=== PATIENT | male | born 1960 | race Hispanic/Latino ===

== ENCOUNTER 2020-07-28 07:08 | Emergency (ER) | payer BC ==
--- OUTSIDE RECORDS SUMMARY | 2020-07-28 07:10 | XMS REPORT | Continuity of Care Document ---
:1960 Author Organization [facility] t Address [address] [place] [address] Care Team Providers Name Role Phone Unavailable Unavailable Unavailable Problems Condition Condition Condition Status Onset Resolution Last Treating Co mments Source Name Details Category Date Date Treatment Clinician Date Primary Primary Problem Active [facility] osteoarthr osteoarthr Melanie kes - [facility] left knee left knee l [facility] Pain, Pain, Problem Active [facility], left knee, left [facility] Primary Primary Problem Active [facility] osteoarthr osteoarthr Melanie kes - [facility] right knee right knee l [facility] Pain, Pain, Problem Active [facility], knee, [facility] right right l [facility] Bilateral Bilateral Problem Active [facility] primary primary [facility] - osteoarthr osteoarthr Me moria [facility] of itis of l knee knee Outpati ent Clinics Narcolepsy 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 Medications Ordered Filled Start Stop Current Ordering Indication Dosage Frequency Signature Comments Components Source Medication Medication Date Date Medication? Clinician (SIG) Name Name Tramadol Tramadol 2019- No Gonzalo as [facility] HCl HCl 06-03 Jesus directed [facility] 00:[facility]: [facility] :[facility] Lisinopril- Lisinopril- Yes Gonzalo not [facility] Hydrochloro Hydrochloro [facility] defined [facility] - thiazide thiazide [facility] Acetaminoph Acetaminoph Yes Gonzalo not [facility] en-Codeine en-Codeine [facility] defined [facility] - #3 #3 [facility] ibuprofen ibuprofen Yes Gonzalo not [facility] Jesus defined [facility] Shingrix Shingrix Yes [facility] not [facility] Twinrix Twinrix Yes Gonzalo not [facility] Jesus defined [facility] Penicillin Penicillin Yes Gonzalo not [facility] V Potassium V Potassium [facility] Procedures This patient has no known procedures. Encounters Start End Encounter Admission Attending Care Care Encounter Source Date/Time Date/Time Type Type Clinicians Facility Department ID 2019-07-08 2019-07-08 Outpatient Claudia Taylort [id number] [facility] 15:30:00 15:30:00 [facility] 2019-06-03 2019-06-03 Outpatient Claudia Taylort [id number] [facility] 09:30:00 09:30:00 t [facility] 2018-09-12 2018-09-12 Outpatient Claudia Taylort [id number] [facility] 08:00:00 08:00:00 t [facility] Results This patient has no known results.
[2020-07-28] MEDS ORDERED: dexAMETHasone 10 MG/ML VIAL ONE (07:42)
[2020-07-28] MEDS ORDERED: MEPERIDINE HCL 50 MG/ML ONE (07:42)
--- NOTE | 2020-07-28 08:19 | ER ---
Nurse's Notes [facility] Name: Star Sullivan Age: 59 yrs Sex: Male : 1960 Arrival Date: 07/28/2020 Time: 07:11 Bed 20 Private MD: Diagnosis: Radiculopathy, lumbosacral region Presentation: 07/28 07:14 Chief complaint: Patient states: right mid-lower back pain radiating down to right hip aa5 began yesterday and got worse this morning. Pt only reports pain with movement and walking. 07:14 Coronavirus screen: Client denies travel out of the [place] in the last 14 days. At this aa5 time, the client does not indicate any symptoms associated with coronavirus-19. 07:14 Acuity: AL 4 aa5 07:14 Method Of Arrival: Ambulatory aa5 07:14 Risk Assessment: Do you want to hurt yourself or someone else? Patient reports no aa5 desire to harm self or others. 07:14 Ebola Screen: Patient negative for fever greater than or equal to 101.5 degrees aa5 Fahrenheit, and additional compatible Ebola Virus Disease symptoms. Initial Sepsis Screen: Does the patient meet any 2 criteria? No. Patient's initial sepsis screen is negative. Does the patient have a suspected source of infection? No. Patient's initial sepsis screen is negative. 07:14 Onset of symptoms was July 28, 2020. aa5 Historical: - Allergies: 07:20 No Known Allergies; aa5 - PMHx: 07:20 Hypertension; aa5 - Immunization history:: Adult Immunizations unknown. - Social history:: Smoking status: Patient denies any tobacco usage or history of. - Family history:: not pertinent. - Hospitalizations: : No recent hospitalization is reported. Screenin:42 Abuse screen: Denies threats or abuse. Denies injuries from another. Nutritional jr10 screening: No deficits noted. Tuberculosis screening: No symptoms or risk factors identified. Fall Risk IV access (20 points). Assessment: 07:43 General: Appears uncomfortable, Behavior is calm, cooperative, appropriate for age. jr10 Pain: Complains of pain in right lower back Pain radiates to right gluteus salazar, right gluteal fold and right hamstring Pain currently is 8 out of 10 on a pain scale. Quality of pain is described as sharp, shooting, Pain began suddenly, this morning Is episodic, Alleviated by nothing. Aggravated by increased activity, weight bearing, Noted to be grimacing. Neuro: No deficits noted. Respiratory: No deficits noted. Derm: No deficits noted. No signs and/or symptoms reported regarding the dermatologic system. Musculoskeletal: Reports pain that started in right side lower back that radiates down right thigh to knee, pt reports pain that started this morning when he woke up, denies any trauma or injury to affected extremity, reports pain that is worse with ambulation and activity. Vital Signs: 07:14 BP 131 / 50; Pulse 74; Resp 18 S; Temp 98.6(O); Pulse Ox 97% on R/A; Weight 97.52 kg aa5 (R); Height 5 ft. 5 in. (165.10 cm) (R); Pain 10/10; 08:09 BP 130 / 59; Pulse 64; Resp 20; Pulse Ox 95% on R/A; jr10 07:14 Body Mass Index 35.78 (97.52 kg, 165.10 cm) aa5 ED Course: 07:11 Patient arrived in ED. as 07:14 Arm band placed on. aa5 07:15 Wong Melo MD is Attending Physician. rn 07:23 Larisa Corea RN is Primary Nurse. jr10 07:31 Triage completed. aa5 07:42 Patient has correct armband on for positive identification. Bed in low position. Call jr10 light in reach. Side rails up X2. Pulse ox on. NIBP on. 07:42 No provider procedures requiring assistance completed. Inserted saline lock: 20 gauge jr10 in right hand, using aseptic technique. IV is patent, is intact, with good blood return, Flushed. 08:41 IV discontinued, intact, bleeding controlled, No redness/swelling at site. Pressure jr10 dressing applied. Administered Medications: 07:43 Drug: Decadron - Dexamethasone 10 mg Route: IVP; Site: right hand; jr10 08:42 Follow up: Response: No adverse reaction jr10 07:45 Drug: Demerol 25 mg Route: IVP; Site: right hand; jr10 08:42 Follow up: Response: No adverse reaction jr10 Outcome: 08:18 Discharge ordered by . rn 08:41 Discharged to home via wheelchair. jr10 08:41 Condition: improved 08:41 Discharge instructions given to patient, Instructed on discharge instructions, follow up and referral plans. Demonstrated understanding of instructions, follow-up care, medications, Prescriptions given X 3. 08:42 Patient left the ED. jr10 Signatures: Marian White Roman, MD MD rn Calderon, Audri RN RN aa5 Larisa Corea RN RN jr10
--- NOTE | 2020-07-28 08:19 | EDPHYS ---
Physician Documentation [facility] Name: Star Sullivan Age: 59 yrs Sex: Male : 1960 Arrival Date: 07/28/2020 Time: 07:11 Bed 20 Private MD: ED Physician Wong Melo HPI: 07/28 07:26 This 59 yrs old Male presents to ER via Unassigned with complaints of Hip rn Pain, leg pain. 07:27 The patient or guardian reports pain. that occurred at home, sustained from unknown rn reason, There is no obvious deformity, The patient is able to self ambulate. The patient is able to bear their full body weight. Onset: The symptoms/episode began/occurred this morning. Modifying factors: The symptoms are alleviated by remaining still, the symptoms are aggravated by any movement. Severity of symptoms: At their worst the symptoms were moderate, in the emergency department the symptoms are unchanged. The patient has not experienced similar symptoms in the past. Reports went to bed fine, woke up this morning with right lower back pain radiating to right leg/thigh, worse with movement, no injury or heavy lifting. No trauma. No fever/abd pain/urinary symptoms/syncope/weakness. Hurts to walk, no pain when laying down or sitting. . Historical: - Allergies: 07:20 No Known Allergies; aa5 - PMHx: 07:20 Hypertension; aa5 - Immunization history:: Adult Immunizations unknown. - Social history:: Smoking status: Patient denies any tobacco usage or history of. - Family history:: not pertinent. - Hospitalizations: : No recent hospitalization is reported. ROS: 07:27 Constitutional: Negative for fever, chills, and weight loss, Neck: Negative for injury, rn pain, and swelling, Cardiovascular: Negative for chest pain, palpitations, and edema, Respiratory: Negative for shortness of breath, cough, wheezing, and pleuritic chest pain, Abdomen/GI: Negative for abdominal pain, nausea, vomiting, diarrhea, and constipation, Back: Negative for injury MS/Extremity: + right leg pain Skin: Negative for injury, rash, and discoloration, Neuro: Negative for headache, weakness, numbness, tingling, and seizure. Exam: 07:27 Constitutional: This is a well developed, well nourished patient who is awake, alert, rn and in no acute distress. Cardiovascular: Regular rate and rhythm. No pulse deficits. Respiratory: No increased work of breathing, no retractions or nasal flaring. Abdomen/GI: soft, non-tender, no pulsatile mass Back: No spinal tenderness. Skin: Warm, dry with normal turgor. Normal color with no rashes, no lesions, and no evidence of cellulitis. MS/ Extremity: Pulses equal, no cyanosis. Neurovascular intact. Equal circumference. + straight leg raise RLE. Neuro: Awake and alert, GCS 15, oriented to person, place, time, and situation. Cranial nerves II-XII grossly intact. Motor strength 5/5 in all extremities. Sensory grossly intact. Cerebellar exam normal. Antalgic gait on right leg. Vital Signs: 07:14 BP 131 / 50; Pulse 74; Resp 18 S; Temp 98.6(O); Pulse Ox 97% on R/A; Weight 97.52 kg aa5 (R); Height 5 ft. 5 in. (165.10 cm) (R); Pain 10/10; 08:09 BP 130 / 59; Pulse 64; Resp 20; Pulse Ox 95% on R/A; jr10 07:14 Body Mass Index 35.78 (97.52 kg, 165.10 cm) aa5 MDM: 07:15 Patient medically screened. rn 08:17 Differential diagnosis: bursitis, arthritis, strain, radiculopathy. Data reviewed: rn vital signs, nurses notes, and as a result, I will discharge patient. Counseling: I had a detailed discussion with the patient and/or guardian regarding: the historical points, exam findings, and any diagnostic results supporting the discharge/admit diagnosis, the need for outpatient follow up, to return to the emergency department if symptoms worsen or persist or if there are any questions or concerns that arise at home. Response to treatment: the patient's symptoms have mildly improved after treatment, and as a result, I will discharge patient. ED course: Improved ambulation, most likely lumbar radiculopathy, stable vitals, no trauma, normal reflexes, will dc home with muscle relaxer, pain meds, steroids with pcp f/u. Return precautions given and understood. . 07/28 07:26 Order name: IV Start; Complete Time: 07:46 rn Administered Medications: 07:43 Drug: Decadron - Dexamethasone 10 mg Route: IVP; Site: right hand; jr10 08:42 Follow up: Response: No adverse reaction jr10 07:45 Drug: Demerol 25 mg Route: IVP; Site: right hand; jr10 08:42 Follow up: Response: No adverse reaction jr10 Disposition: 07/28/20 08:18 Discharged to Home. Impression: Radiculopathy, lumbosacral region. - Condition is Stable. - Discharge Instructions: Lumbosacral Radiculopathy. - Prescriptions for Ultram 50 mg Oral Tablet - take 1 tablet by ORAL route every 6 hours As needed; 15 tablet. Cyclobenzaprine 10 mg Oral Tablet - take 1 tablet by ORAL route every 8 hours As needed; 15 tablet. Medrol (Akash) 4 mg Oral Tablets, Dose Pack - take 1 tablet by ORAL route as directed - follow package instructions; 1 packet. - Medication Reconciliation Form, Thank You Letter, Antibiotic Education, Prescription Opioid Use, Work release form form. - Follow up: Private Physician; When: As needed; Reason: Recheck today's complaints, Re-evaluation by your physician. - Problem is new. - Symptoms have improved. Signatures: Wong Melo MD MD rn Gayatri Oconnor, RN RN aa5 Larisa Corea RN RN jr10 Corrections: (The following items were deleted from the chart) 08:42 08:18 07/28/2020 08:18 Discharged to Home. Impression: Radiculopathy, lumbosacral jr10 region. Condition is Stable. Forms are Medication Reconciliation Form, Thank You Letter, Antibiotic Education, Prescription Opioid Use. Follow up: Private Physician; When: As needed; Reason: Recheck today's complaints, Re-evaluation by your physician. Problem is new. Symptoms have improved. rn
[2020-07-30 17:36] VITALS: TEMP 98.6
[2020-07-30 17:37] VITALS: BP 130/59; O2SAT 95
== END 2020-07-28 08:42 | disposition home or self-care (01) ==
LOC: ER 07:08
DX: M54.17 Radiculopathy, lumbosacral region (principal)
CPT/HCPCS: J1100; J2175; 96374; 96375; 99284

== ENCOUNTER 2020-08-03 12:38 | Emergency (ER) | payer BC ==
--- OUTSIDE RECORDS SUMMARY | 2020-08-03 12:40 | XMS REPORT | Continuity of Care Document ---
:1960 Author Organization [facility] t Address [address] [place] [address] Care Team Providers Name Role Phone Unavailable [...] Potassium Jesus defined [facility] Procedures This patient has no known procedures. Encounters Start End Encounter Admission Attending Care Care Encounter Source Date/Time Date/Time Type Type Clinicians Facility Department ID 2019-07-08 2019-07-08 Outpatient Claudia Taylort [id number] [facility] 15:30:00 15:30:00 t [facility] 2019-06-03 2019-06-03 Outpatient Claudia Taylort [id number] [facility] 09:30:00 09:30:00 t [facility] 2018-09-12 2018-09-12 Outpatient Claudia Taylort [id number] [facility] 08:00:00 08:00:00 t [facility] Results This patient has no known results.
[2020-08-03 14:11] LABS: Absolute Lymphocytes (CBC) 2.5 K/uL (0.7-4.9); Basophils % 0.9 % (0-1.3); Hematocrit 38.7 % (39.6-49.0); MPV 9.3 fL (7.6-11.3)
[2020-08-03 14:12] LABS: Protime INR 0.97
[2020-08-03] MEDS ORDERED: NA CHLORIDE 0.9% 500 ML ONE ×2 (14:17→16:05)
--- NOTE | 2020-08-03 14:23 | RAD REPORT ---
EXAM DESCRIPTION: CT - Angio Aorta For Dissection - 08/03/2020 1:50 pm CLINICAL HISTORY: . Chest and abdominal pain COMPARISON: None TECHNIQUE: Computed tomography angiography of the chest, abdomen pelvis were obtained. 100 cc Isovue 370 was administered intravenously. Coronal and sagittal reconstruction were performed. MIP 3D reconstruction was performed All CT scans are performed using dose optimization technique as appropriate and may include automated exposure control or mA/KV adjustment according to patient size. FINDINGS: An aortic dissection is not seen. An aortic aneurysm is not displayed. The celiac, SMA and MARIBETH are patent . A lung consolidation is not present. A pericardial effusion is not seen. A pleural effusion is not n oted. Fatty liver Spleen, pancreas adrenals kidneys demonstrate no significant abnormality. The appendix is normal. There no evidence diverticulitis. Spondylosis involves lumbar spine. Small inguinal hernias contain fat Mild gastric distention IMPRESSION: Negative for an aortic dissection.
[2020-08-03 14:37] LABS: ALT/SGPT 80 U/L (12-78); AST/SGOT 35 U/L (15-37); Albumin 3.6 g/dL (3.4-5.0); Alkaline Phosphatase 104 U/L (45-117); BUN Blood Urea Nitrogen 37 mg/dL (7-18); Bicarbonate 27 mmol/L (21-32); Bilirubin Direct 0.2 mg/dL (0-0.2); Bilirubin Total 0.5 mg/dL (0.2-1.0); Glucose Level 142 mg/dL (74-106); Magnesium 2.3 mg/dL (1.8-2.4); NT PRO-BNP 27 pg/mL (<125); Potassium 3.6 mmol/L (3.5-5.1); Protein, Total 6.9 g/dL (6.4-8.2); Sodium Level 141 mmol/L (136-145); Troponin (Emerg Dept Use Only) < 0.02 ng/mL (0.0-0.045)
[2020-08-03] MEDS ORDERED: dexAMETHasone 10 MG/ML VIAL ONE (15:44)
--- NOTE | 2020-08-03 15:48 | RAD REPORT ---
EXAM DESCRIPTION: Jakub Single View08/03/2020 2:33 pm CLINICAL HISTORY: Hypertension COMPARISON: none FINDINGS: The lungs appear clear of acute infiltrate. The heart is normal size IMPRESSION: No acute abnormalities displayed
--- NOTE | 2020-08-03 16:49 | ER ---
Nurse's Notes [facility] Name: Star Sullivan Age: 59 yrs Sex: Male : 1960 Arrival Date: 08/03/2020 Time: 12:41 Bed 6 Private MD: Mayra Monk H Diagnosis: Sciatica, right side;Hypotension, unspecified;Volume depletion Presentation: 08/03 12:50 Chief complaint: Patient states: Right hip pain continues since last visit here. Pain ll1 radiates down right leg. Medications tramadol and flexeril not helping. Coronavirus screen: Client denies travel out of the [place] in the last 14 days. At this time, the client does not indicate any symptoms associated with coronavirus-19. Ebola Screen: Patient denies travel to an Ebola-affected area in the 21 days before illness onset. Initial Sepsis Screen: Does the patient meet any 2 criteria? Systolic BP < 90 mmHg. Risk Assessment: Do you want to hurt yourself or someone else? Patient reports no desire to harm self or others. Onset of symptoms was July 28, 2020. 12:50 Method Of Arrival: Wheelchair ll1 12:50 Acuity: AL 2 ll1 15:49 Initial Sepsis Screen: Does the patient have a suspected source of infection? No. sv Patient's initial sepsis screen is negative. Historical: - Allergies: 12:49 No Known Allergies; ll1 - PMHx: 12:49 Hypertension; ll1 - PSHx: 12:49 cataract repair; ll1 - Immunization history:: Flu vaccine is not up to date. - Social history:: Smoking status: Patient reports the use of cigarette tobacco products, smokes one-half pack cigarettes per day, Patient uses alcohol, only on a social basis. Patient/guardian denies using street drugs. Screenin:40 Abuse screen: Denies threats or abuse. Denies injuries from another. Nutritional sv screening: No deficits noted. Tuberculosis screening: No symptoms or risk factors identified. Fall Risk None identified. Assessment: 13:35 General: Appears in no apparent distress. uncomfortable, well groomed, well developed, sv Behavior is calm, cooperative, appropriate for age. Pain: Complains of pain in right hip and right leg Pain currently is 10 out of 10 on a pain scale. Is continuous, Aggravated by increased activity, repositioning. Neuro: Level of Consciousness is awake, alert, obeys commands, Oriented to person, place, time, situation, Moves all extremities. Full function. Cardiovascular: Denies chest pain, shortness of breath, Patient's skin is warm and dry. Respiratory: Airway is patent Respiratory effort is even, unlabored, Respiratory pattern is regular, symmetrical. Derm: Skin is intact, Skin is pink, warm \T\ dry. 14:13 Reassessment: Patient appears in no apparent distress at this time. No changes from sv previously documented assessment. Patient and/or family updated on plan of care and expected duration. Pain level reassessed. Patient is alert, oriented x 3, equal unlabored respirations, skin warm/dry/pink. 15:40 Reassessment: Patient appears in no apparent distress at this time. No changes from sv previously documented assessment. Patient and/or family updated on plan of care and expected duration. Pain level reassessed. Patient is alert, oriented x 3, equal unlabored respirations, skin warm/dry/pink. 16:20 Reassessment: Patient appears in no apparent distress at this time. Patient and/or sv family updated on plan of care and expected duration. Pain level reassessed. Patient is alert, oriented x 3, equal unlabored respirations, skin warm/dry/pink. 17:17 Reassessment: Patient appears in no apparent distress at this time. Patient and/or sv family updated on plan of care and expected duration. Pain level reassessed. Patient is alert, oriented x 3, equal unlabored respirations, skin warm/dry/pink. Patient states feeling better. Patient states symptoms have improved. Vital Signs: 12:50 BP 81 / 55; Pulse 88; Resp 18; Temp 97.8; Pulse Ox 97% ; Pain 10/10; ll1 13:15 BP 94 / 46; Pulse 74; Resp 16; Pulse Ox 95% ; sv 14:00 BP 114 / 52; Pulse 74 MON; Resp 16; Pulse Ox 95% on R/A; sv 14:30 BP 102 / 51; Pulse 63; Resp 19; Pulse Ox 95% ; sv 15:00 BP 94 / 53; Pulse 63 MON; Resp 17; Pulse Ox 95% on R/A; sv 15:46 BP 118 / 59; Pulse 74; Resp 21; Pulse Ox 95% ; sv 15:50 BP 110 / 65 LA Supine (auto/reg); Pulse 70; sv 15:52 BP 112 / 64 LA Sitting (auto/reg); Pulse 65; sv 15:57 BP 106 / 68 LA Standing (auto/reg); Pulse 84; sv 16:50 BP 127 / 73; Pulse 68; Resp 16; Pulse Ox 96% ; sv 14:00 Sinus Rhythm sv 15:00 Sinus Rhythm sv ED Course: 12:41 Patient arrived in ED. mr 12:41 aMyra Monk DO is Private Physician. mr 12:55 Triage completed. ll1 12:55 Arm band placed on. ll1 13:22 Jocelyn Gandhi FNP-C is PHCP. snw 13:22 Gianni Rowan MD is Attending Physician. snw 13:27 Carly Santos RN is Primary Nurse. sv 13:35 manager hospitality on. Pulse ox on. NIBP on. sv 13:40 Patient has correct armband on for positive identification. Placed in gown. Bed in low sv position. Call light in reach. Side rails up X2. 13:40 EKG done, by ED staff, reviewed by Jocelyn CALLE. Inserted saline lock: 20 gauge sv in right antecubital area, using aseptic technique. Blood collected. Flushed right antecubital with 5 ml normal saline. 13:50 CT Aorta for Dissection In Process Unspecified. EDMS 14:33 XRAY Chest (1 view) In Process Unspecified. EDMS 14:58 Awaiting radiology results. Awaiting re-evaluation by ER provider. sv 16:48 Mayra Monk DO is Referral Physician. snw 17:17 No provider procedures requiring assistance completed. IV discontinued, intact, sv bleeding controlled, No redness/swelling at site. Pressure dressing applied. Administered Medications: 14:13 Drug: NS 0.9% 500 ml Route: IV; Rate: bolus; Site: right antecubital; sv 16:00 Follow up: Response: No adverse reaction; IV Status: Completed infusion; IV Intake: sv 500ml 15:40 Drug: Decadron - Dexamethasone 10 mg Route: IVP; Site: right antecubital; sv 15:49 Follow up: Response: No adverse reaction sv 15:56 Drug: NS 0.9% 500 ml Volume: 500 ml; Route: IV; Rate: 1 bolus; Site: right antecubital; sv 16:30 Follow up: Response: No adverse reaction; IV Status: Completed infusion; IV Intake: sv 500ml Intake: 16:00 IV: 500ml; Total: 500ml. sv 16:30 IV: 500ml; Total: 1000ml. sv Outcome: 16:49 Discharge ordered by MD. ramirez 17:17 Patient left the ED. sv 17:17 Discharged to home via wheelchair, with family. sv 17:17 Condition: stable 17:17 Discharge instructions given to patient, Instructed on discharge instructions, follow up and referral plans. medication usage, Demonstrated understanding of instructions, follow-up care, medications, Prescriptions given X 1. Signatures: Dispatcher [employer] Carly Santoro, Jocelyn Gifford RN, ASSOCIATE PROFESSOR OF PATHOLOGY-C ASSOCIATE PROFESSOR OF PATHOLOGY-Csnw Ling Corea Lynsay RN RN ll1
--- NOTE | 2020-08-03 16:49 | EDPHYS ---
Physician Documentation [facility] Name: Star Sullivan Age: 59 yrs Sex: Male : 1960 Arrival Date: 08/03/2020 Time: 12:41 Bed 6 Private MD: Mayra Monk H ED Physician Gianni Rowan HPI: 08/03 14:59 This 59 yrs old Male presents to ER via Wheelchair with complaints of Leg Pain.snw 14:59 The patient presents with pain, spasm. The complaints affect the right hip and pelvis. snw Context: The problem was sustained at an unknown site. Onset: The symptoms/episode began/occurred suddenly, 1 week(s) ago, and became persistent. Treatment prior to arrival includes: seen here recently and given anti-inflammatories and flexeril - pt states it has not helped. Severity of symptoms: At their worst the symptoms were moderate, severe. The patient has experienced similar episodes in the past. The patient has not recently seen a physician, Sees Dr. Monk. Historical: - Allergies: 12:49 No Known Allergies; ll1 - PMHx: 12:49 Hypertension; ll1 - PSHx: 12:49 cataract repair; ll1 - Immunization history:: Flu vaccine is not up to date. - Social history:: Smoking status: Patient reports the use of cigarette tobacco products, smokes one-half pack cigarettes per day, Patient uses alcohol, only on a social basis. Patient/guardian denies using street drugs. ROS: 14:58 Constitutional: Negative for fever, chills, and weight loss, Eyes: Negative for injury, snw pain, redness, and discharge, ENT: Negative for injury, pain, and discharge, Neck: Negative for injury, pain, and swelling, Cardiovascular: Negative for chest pain, palpitations, and edema, Respiratory: Negative for shortness of breath, cough, wheezing, and pleuritic chest pain, Abdomen/GI: Negative for abdominal pain, nausea, vomiting, diarrhea, and constipation, : Negative for injury, bleeding, discharge, and swelling, Skin: Negative for injury, rash, and discoloration, Neuro: Negative for headache, weakness, numbness, tingling, and seizure, Psych: Negative for depression, anxiety, suicide ideation, homicidal ideation, and hallucinations. 14:58 Back: Positive for pain at rest, pain with movement, radiated pain. 14:58 MS/extremity: Positive for pain, of the right hip. Exam: 14:58 Constitutional: This is a well developed, well nourished patient who is awake, alert, snw and in no acute distress. Head/Face: Normocephalic, atraumatic. Eyes: Pupils equal round and reactive to light, extra-ocular motions intact. Lids and lashes normal. Conjunctiva and sclera are non-icteric and not injected. Cornea within normal limits. Periorbital areas with no swelling, redness, or edema. ENT: Nares patent. No nasal discharge, no septal abnormalities noted. Tympanic membranes are normal and external auditory canals are clear. Oropharynx with no redness, swelling, or masses, exudates, or evidence of obstruction, uvula midline. Mucous membranes moist. Neck: Trachea midline, no thyromegaly or masses palpated, and no cervical lymphadenopathy. Supple, full range of motion without nuchal rigidity, or vertebral point tenderness. No Meningismus. Chest/axilla: Normal chest wall appearance and motion. Nontender with no deformity. No lesions are appreciated. Cardiovascular: Regular rate and rhythm with a normal S1 and S2. No gallops, murmurs, or rubs. Normal PMI, no JVD. No pulse deficits. Respiratory: Lungs have equal breath sounds bilaterally, clear to auscultation and percussion. No rales, rhonchi or wheezes noted. No increased work of breathing, no retractions or nasal flaring. Abdomen/GI: Soft, non-tender, with normal bowel sounds. No distension or tympany. No guarding or rebound. No evidence of tenderness throughout. Skin: Warm, dry with normal turgor. Normal color with no rashes, no lesions, and no evidence of cellulitis. MS/ Extremity: Pulses equal, no cyanosis. Neurovascular intact. Full, normal range of motion. Neuro: Awake and alert, GCS 15, oriented to person, place, time, and situation. Cranial nerves II-XII grossly intact. Motor strength 5/5 in all extremities. Sensory grossly intact. Cerebellar exam normal. Normal gait. Psych: Awake, alert, with orientation to person, place and time. Behavior, mood, and affect are within normal limits. 14:58 Back: pain, that is moderate, ROM is painful, CVA tenderness, is absent, muscle spasm, is not present. Vital Signs: 12:50 BP 81 / 55; Pulse 88; Resp 18; Temp 97.8; Pulse Ox 97% ; Pain 10/10; ll1 13:15 BP 94 / 46; Pulse 74; Resp 16; Pulse Ox 95% ; sv 14:00 BP 114 / 52; Pulse 74 MON; Resp 16; Pulse Ox 95% on R/A; sv 14:30 BP 102 / 51; Pulse 63; Resp 19; Pulse Ox 95% ; sv 15:00 BP 94 / 53; Pulse 63 MON; Resp 17; Pulse Ox 95% on R/A; sv 15:46 BP 118 / 59; Pulse 74; Resp 21; Pulse Ox 95% ; sv 15:50 BP 110 / 65 LA Supine (auto/reg); Pulse 70; sv 15:52 BP 112 / 64 LA Sitting (auto/reg); Pulse 65; sv 15:57 BP 106 / 68 LA Standing (auto/reg); Pulse 84; sv 16:50 BP 127 / 73; Pulse 68; Resp 16; Pulse Ox 96% ; sv 14:00 Sinus Rhythm sv 15:00 Sinus Rhythm sv MDM: 13:24 Patient medically screened. snw 15:02 Data reviewed: vital signs, nurses notes. Data interpreted: Pulse oximetry: on room air snw is 95 %. Interpretation: acceptable. Response to treatment: the patient's symptoms have mildly improved after treatment. ED course: BP remains low. 08/03 13:21 Order name: Basic Metabolic Panel; Complete Time: 14:42 snw 08/03 13:21 Order name: CBC with Diff; Complete Time: 14:29 snw 08/03 13:21 Order name: LFT's; Complete Time: 14:42 snw 08/03 13:21 Order name: Magnesium; Complete Time: 14:42 snw 08/03 13:21 Order name: NT PRO-BNP; Complete Time: 14:42 snw 08/03 13:21 Order name: PT-INR; Complete Time: 14:29 snw 08/03 13:21 Order name: CT Aorta for Dissection; Complete Time: 14:29 snw 08/03 13:21 Order name: Troponin (emerg Dept Use Only); Complete Time: 14:42 snw 08/03 13:21 Order name: XRAY Chest (1 view); Complete Time: 15:49 snw 08/03 13:21 Order name: EKG; Complete Time: 13:21 snw 08/03 14:04 Order name: CREATININE WHOLE BLOOD; Complete Time: 14:14 EDMS 08/03 13:21 Order name: Cardiac monitoring; Complete Time: 14:14 snw 08/03 13:21 Order name: EKG - Nurse/Tech; Complete Time: 14:14 snw 08/03 13:21 Order name: IV Saline Lock; Complete Time: 14:14 snw 08/03 13:21 Order name: Labs collected and sent; Complete Time: 14:14 snw 08/03 13:21 Order name: O2 Per Protocol; Complete Time: 14:14 snw 08/03 13:21 Order name: O2 Sat Monitoring; Complete Time: 14:14 snw 08/03 13:51 Order name: Recheck B/P; Complete Time: 14:14 snw 08/03 15:27 Order name: Orthostatics; Complete Time: 15:56 snw EC:45 Rate is 71 beats/min. Rhythm is regular. QRS [place] is Normal. CA interval is normal. QRS snw interval is normal. QT interval is normal. Clinical impression: Normal ECG. Administered Medications: 14:13 Drug: NS 0.9% 500 ml Route: IV; Rate: bolus; Site: right antecubital; sv 16:00 Follow up: Response: No adverse reaction; IV Status: Completed infusion; IV Intake: sv 500ml 15:40 Drug: Decadron - Dexamethasone 10 mg Route: IVP; Site: right antecubital; sv 15:49 Follow up: Response: No adverse reaction sv 15:56 Drug: NS 0.9% 500 ml Volume: 500 ml; Route: IV; Rate: 1 bolus; Site: right antecubital; sv 16:30 Follow up: Response: No adverse reaction; IV Status: Completed infusion; IV Intake: sv 500ml Disposition: 08/03/20 16:49 Discharged to Home. Impression: Sciatica, right side, Hypotension, unspecified, Volume depletion. - Condition is Stable. - Discharge Instructions: Dehydration, Adult, Sciatica, Rehydration, Adult, Heat Therapy, Radicular Pain. - Prescriptions for orphenadrine citrate 100 mg Oral Tablet Sustained Release - take 1 tablet by ORAL route 2 times per day As needed; 20 tablet. - Work release form, Medication Reconciliation Form, Thank You Letter, Antibiotic Education, Prescription Opioid Use form. - Follow up: Emergency Department; When: As needed; Reason: Worsening of condition. Follow up: [facility]; When: Tomorrow; Reason: Recheck today's complaints, Continuance of care, Re-evaluation by your physician. - Notes: Please stop blood pressure medication for 2 days and then take as directed. Signatures: Dispatcher [employer] EDMS Carly Santos RN RN sv Waters, Shelly, FNP-C SUPERVISOR [employer]-Manan Chavez RN RN ll1 Corrections: (The following items were deleted from the chart) 17:17 16:49 08/03/2020 16:49 Discharged to Home. Impression: Sciatica, right side; sv Hypotension, unspecified; Volume depletion. Condition is Stable. Discharge Instructions: Dehydration, Adult, Sciatica, Rehydration, Adult, Heat Therapy, Radicular Pain. Prescriptions for orphenadrine citrate 100 mg Oral Tablet Sustained Release - take 1 tablet by ORAL route 2 times per day As needed; 20 tablet. and Forms are Medication Reconciliation Form, Thank You Letter, Antibiotic Education, Prescription Opioid Use. Follow up: Emergency Department; When: As needed; Reason: Worsening of condition. [facility]; When: Tomorrow; Reason: Recheck today's complaints, Continuance of care, Re-evaluation by your physician. snw
--- NOTE | 2020-08-04 05:21 | EKG ---
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
[2020-08-04 06:53] VITALS: TEMP 97.8
[2020-08-04 07:03] VITALS: BP 127/73; O2SAT 96
--- NOTE | 2020-08-04 20:02 | EKG ---
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
== END 2020-08-03 17:17 | disposition home or self-care (01) ==
LOC: ER 12:38
DX: M54.31 Sciatica, right side (principal); I95.9 Hypotension, unspecified; E86.9 Volume depletion, unspecified; I10 Essential (primary) hypertension; F17.210 Nicotine dependence, cigarettes, uncomplicated
CPT/HCPCS: 96361; 93005 ×2; 85025; 80048; 36415; 83735; 85610; 82565; 80076; 84484; 83880; 71275; 74175; 71045; 96374; 99285; Q9967; J1100; J7040 ×2

== ENCOUNTER 2021-02-07 16:25 | Emergency (ER) | payer BC ==
--- OUTSIDE RECORDS SUMMARY | 2021-02-07 16:27 | XMS REPORT | Continuity of Care Document ---
:[address] [facility] t Address [address] [place] [address] Care Team Providers Name Role Phone Mihir Medina Attending Clinician Problems Condition Condition Condition Status Onset Resolution [...] Medication? Clinician (SIG) Name Name Tramadol Tramadol 2018- No [facility] as [facility] HCl HCl 06-03 [facility] Lisinopril- Lisinopril- Yes Gonzalo not [facility] Hydrochloro Hydrochloro [facility] - thiazide thiazide [facility] Acetaminoph Acetaminoph Yes Gonzalo not [facility] en-Codeine en-Codeine [facility] ibuprofen ibuprofen Yes Gonzalo not [facility] Shingrix Shingrix Yes Goznalo not [facility] Twinrix Twinrix Yes Gonzalo not [facility] Jesus [facility] Penicillin Penicillin Yes Gonzalo not [facility] V Potassium V Potassium [facility] Procedures This patient has no known procedures. Encounters Start End Encounter Admission Attending Care Care Encounter Source Date/Time Date/Time Type Type Clinicians Facility Department ID 2020-12-08 2020-12-08 Office GARCÍA Almonte [id number] 09:18:23 09:33:23 Visit [facility] [id number] Surgical [id number] Specialti [id number] [address] [place] 2020-12-08 2020-12-08 Letter Gage OHSORAYA [id number] 00:00:00 00:00:00 (Out) [facility] [id number] Surgical [id number] Specialti [id number] [address] [place] 2019-07-08 2019-07-08 [facility] [id number] [facility] 15:30:00 15:30:00 [facility] 2019-06-03 2019-06-03 [facility] [id number] [address] 09:30:00 09:30:00 t [facility] 2018-09-12 2018-09-12 Outpatient Claudia Razo [id number] [address] 08:00:00 08:00:00 t [facility] Results This patient has no known results.
[2021-02-07] MEDS ORDERED: LIDOCAINE 1% MPF 5 ML VIAL ONE (19:14)
[2021-02-07] MEDS ORDERED: HYDROCODONE/APAP 10/325 TAB ONE (19:14)
[2021-02-07] MEDS ORDERED: BUPIVACAINE 0.5% PF 10 ML VIAL ONE (19:14)
--- NOTE | 2021-02-07 19:31 | RAD REPORT ---
EXAM DESCRIPTION: RAD - Hand Left 3 View - 02/07/2021 6:35 pm CLINICAL HISTORY: PAIN, laceration COMPARISON: None. FINDINGS: No fracture, dislocation or periosteal reaction noted. IP joint degenerative changes are p resent most notable in the third DIP joint. Third MCP joint space narrowing is seen with marginal spu rring changes. No air or foreign body in the soft tissues. IMPRESSION: Left hand degenerative change as detailed. No acute bone or joint finding. No foreign body seen.
--- NOTE | 2021-02-07 20:21 | ER ---
Nurse's Notes [facility] Name: Star Sullivan Age: 60 yrs Sex: Male : 1960 Arrival Date: 02/07/2021 Time: 16:26 Bed 18 Private MD: Diagnosis: Laceration without foreign body of left index finger without damage to nail;Laceration without foreign body of left middle finger without damage to nail;Laceration without foreign body of left little finger without damage to nail-avulsion laceration Presentation: 02/07 16:31 Chief complaint: Patient states: Accidentally cut L hand 2nd-4th digits to palmar ll1 aspect of fingers. Laceration to tip of 5th digit. No active bleeding. Coronavirus screen: Client denies travel out of the [place] in the last 14 days. At this time, the client does not indicate any symptoms associated with coronavirus-19. Ebola Screen: Patient denies travel to an Ebola-affected area in the 21 days before illness onset. Complicating Factors: There are no complicating factors for this patient. Initial Sepsis Screen: Does the patient meet any 2 criteria? No. Patient's initial sepsis screen is negative. Does the patient have a suspected source of infection? Yes: Skin breakdown/wound. Risk Assessment: Do you want to hurt yourself or someone else? Patient reports no desire to harm self or others. Onset of symptoms was February 07, 2021. 16:31 Method Of Arrival: Ambulatory ll1 16:31 Acuity: AL 3 ll1 Triage Assessment: 19:25 General: Appears in no apparent distress. Behavior is calm, cooperative, appropriate wh for age. Injury Description: Laceration sustained to left hand. Historical: - Allergies: 16:33 No Known Allergies; ll1 - PMHx: 16:33 Hypertension; ll1 - PSHx: 16:33 cataract repair; ll1 - Immunization history:: Flu vaccine is not up to date. - Social history:: Smoking status: Patient reports the use of cigarette tobacco products, smokes one-half pack cigarettes per day. Screenin:05 Abuse screen: Denies threats or abuse. Nutritional screening: No deficits noted. bw Tuberculosis screening: No symptoms or risk factors identified. Fall Risk None identified. Assessment: 19:05 Reassessment: Patient appears in no apparent distress at this time. Patient and/or bw family updated on plan of care and expected duration. Pain level reassessed. Patient is alert, oriented x 3, equal unlabored respirations, skin warm/dry/pink. Pain: Complains of pain in left hand. Musculoskeletal: Reports pain in left hand. Injury Description: Laceration is bleeding moderately. 20:00 Reassessment: Patient appears in no apparent distress at this time. Patient and/or wh family updated on plan of care and expected duration. Pain level reassessed. Patient is alert, oriented x 3, equal unlabored respirations, skin warm/dry/pink. Vital Signs: 16:31 BP 146 / 66; Pulse 76; Resp 16; Temp 98.5; Pulse Ox 98% ; Weight 95.25 kg; Height 5 ft. ll1 5 in. (165.10 cm); Pain 0/10; 19:07 BP 140 / 61; Pulse 74; Resp 18; Pulse Ox 98% on R/A; bw 20:30 BP 132 / 72; Pulse 61; Resp 18; Pulse Ox 98% on R/A; wh 16:31 Body Mass Index 34.95 (95.25 kg, 165.10 cm) ll1 ED Course: 16:26 Patient arrived in ED. mr 16:32 Triage completed. ll1 16:33 Arm band placed on. ll1 17:07 Jarred Don PA is PHCP. [facility] 17:07 Tank Watts MD is Attending Physician. [facility] 18:01 Laxmi Palomo FNP-C is PHCP. kb 18:01 Tank Watts MD is Attending Physician. kb 18:17 Clarisa Tomlinson, RN is Primary Nurse. bw 19:00 Hand Left 3 View XRAY Sent. bw 19:05 Patient has correct armband on for positive identification. Bed in low position. Call light in reach. Side rails up X 1. 19:05 suture setup. Patient did not have IV access during this emergency room visit. bw 20:00 Assist provider with laceration repair on left hand that was between 2.6 to 7.5 cm wh using sutures. Set up tray. Performed by Clarisa Tomlinson RN Dressed with 4X4s, Patient tolerated well. Administered Medications: 19:00 Drug: [place] 10 mg-325 mg 1 tabs Route: PO; bw 19:32 Follow up: Response: No adverse reaction; Pain is decreased; RASS: Alert and Calm (0) 19:31 Drug: Bupivacaine (0.5 %) 1 vials {Note: Adminitered by Provider.} Volume: 10 ml; Route: Infiltration; 19:32 Drug: Lidocaine (1 %) 1 vials {Note: Administered by Provider .} Volume: 5 ml; Route: wh Infiltration; Outcome: 20:20 Discharge ordered by . aaliyah 20:43 Discharged to home ambulatory. 20:43 Condition: stable 20:43 Discharge instructions given to patient, Instructed on discharge instructions, follow up and referral plans. no drinking with medication, no driving heavy equipment, medication usage, wound care, Demonstrated understanding of instructions, follow-up care, medications, wound care, Prescriptions given X 1. 20:44 Patient left the ED. Signatures: Laxmi Palomo, TELEHEALTH NURSE EDUCATOR-C TELEHEALTH NURSE EDUCATOR-Ckb Jarred Don PA PA jmm Rivera, Mary mr Jt Wilson RN RN Manan Garvin RN RN [facility] Clarisa Tomlinson RN RN
--- NOTE | 2021-02-07 20:21 | EDPHYS ---
Physician Documentation [facility] Name: Star Sullivan Age: 60 yrs Sex: Male : 1960 Arrival Date: 02/07/2021 Time: 16:26 Bed 18 Private MD: ED Physician Tank Watts HPI: 02/07 20:45 This 60 yrs old Male presents to ER via Ambulatory with complaints of kb Laceration To Hand. 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 The injury was accidental. The laceration(s) is(are) located on the dorsal aspect of distal phalanx of left little finger, palmar aspect of middle phalanx of left middle finger and palmar aspect of middle phalanx of left index finger. Onset: The symptoms/episode began/occurred just prior to arrival. Associated signs and symptoms: The patient has no apparent associated signs or symptoms. The patient has not experienced similar symptoms in the past. The patient has not recently seen a physician. Pt reports he accidentally cut his fingers with a table saw. Historical: - Allergies: 16:33 No Known Allergies; ll1 - PMHx: 16:33 Hypertension; ll1 - PSHx: 16:33 cataract repair; ll1 - Immunization history:: Flu vaccine is not up to date. - Social history:: Smoking status: Patient reports the use of cigarette tobacco products, smokes one-half pack cigarettes per day. ROS: 19:44 Constitutional: Negative for fever, chills, and weight loss, MS/Extremity: Negative for kb injury and deformity, Neuro: Negative for headache, weakness, numbness, tingling, and seizure. 20:42 Skin: Positive for laceration(s), of the dorsal aspect of distal phalanx of left little kb finger, palmar aspect of middle phalanx of left middle finger and palmar aspect of middle phalanx of left index finger. Exam: 20:42 Constitutional: This is a well developed, well nourished patient who is awake, alert, kb and in no acute distress. Head/Face: Normocephalic, atraumatic. MS/ Extremity: Pulses equal, no cyanosis. Neurovascular intact. Full, normal range of motion. Neuro: Awake and alert, GCS 15, oriented to person, place, time, and situation. Cranial nerves II-XII grossly intact. Moves all extremities. Sensory grossly intact. Cerebellar exam normal. Normal gait. 20:42 Respiratory: the patient does not display signs of respiratory distress, Respirations: normal. 20:42 Skin: injury, avulsion(s), a small of the dorsal aspect of distal phalanx of left little finger, laceration(s), the wound is approximately 1.5 cm(s), of the palmar aspect of middle phalanx of left middle finger, the second wound is approximately 2.5 cm(s), of the palmar aspect of middle phalanx of left index finger, that can be described as clean, no foreign body, linear, with mild bleeding. Vital Signs: 16:31 BP 146 / 66; Pulse 76; Resp 16; Temp 98.5; Pulse Ox 98% ; Weight 95.25 kg; Height 5 ft. ll1 5 in. (165.10 cm); Pain 0/10; 19:07 BP 140 / 61; Pulse 74; Resp 18; Pulse Ox 98% on R/A; bw 20:30 BP 132 / 72; Pulse 61; Resp 18; Pulse Ox 98% on R/A; wh 16:31 Body Mass Index 34.95 (95.25 kg, 165.10 cm) ll1 Procedures: 19:43 Nerve block: (digital) of palmar aspect of proximal phalanx of left middle finger and kb palmar aspect of proximal phalanx of left index finger Medication: Lidocaine 1% without epinephrine Marcaine 0.5%, Amount: 7 mls were injected, Effect: the patient has resolution of the pain, Set up for procedure. Performed by Laxmi CALLE Patient tolerated well. Laceration: 20:43 Wound Repair of 1.5cm ( 0.6in ) subcutaneous laceration to palmar aspect of middle kb phalanx of left middle finger. Linear shaped.. Distal neuro/vascular/tendon intact. Anesthesia: Digital block administered with 3 mls of Lido/Marcaine. Wound prep: Extensive cleansing with betadine by gallery or museum technician, Wound irrigation with saline by gallery or museum technician. Skin closed with 2 5-0 Prolene using simple sutures and sterile technique. Patient tolerated well. 20:43 Wound Repair of 2.5cm ( 1.0in ) subcutaneous laceration to palmar aspect of middle kb phalanx of left index finger. Irregularly shaped.. Distal neuro/vascular/tendon intact. Anesthesia: Digital block administered with 4 mls of Lido/Marcaine. Wound prep: Extensive cleansing with betadine by gallery or museum technician, Wound irrigation with saline by gallery or museum technician. Skin closed with 7 5-0 Prolene using simple sutures and sterile technique. Patient tolerated well. MDM: 18:01 Patient medically screened. kb 19:44 Data reviewed: vital signs, nurses notes. Data interpreted: Pulse oximetry: on room air kb is 98 %. Interpretation: normal. 20:41 Counseling: I had a detailed discussion with the patient and/or guardian regarding: the kb historical points, exam findings, and any diagnostic results supporting the discharge/admit diagnosis, radiology results, the need for outpatient follow up, a hand specialist, to return to the emergency department if symptoms worsen or persist or if there are any questions or concerns that arise at home. 02/07 18:10 Order name: Hand Left 3 View XRAY kb 02/07 19:31 Order name: RAD; Complete Time: 19:35 EDMS 02/07 18:10 Order name: Prolene, Sutures; Complete Time: 18:59 kb 02/07 18:10 Order name: Dressing - Wound; Complete Time: 18:59 kb 02/07 18:10 Order name: Gloves, Sterile; Complete Time: 19:00 kb 02/07 18:10 Order name: Setup Suture Tray; Complete Time: 19:00 kb 02/07 20:20 Order name: Finger Splint; Complete Time: 20:40 kb Administered Medications: 19:00 Drug: Herculaneum 10 mg-325 mg 1 tabs Route: PO; bw 19:32 Follow up: Response: No adverse reaction; Pain is decreased; RASS: Alert and Calm (0) 19:31 Drug: Bupivacaine (0.5 %) 1 vials {Note: Adminitered by Provider.} Volume: 10 ml; wh Route: Infiltration; 19:32 Drug: Lidocaine (1 %) 1 vials {Note: Administered by Provider .} Volume: 5 ml; Route: wh Infiltration; Disposition: 02/08 07:00 Co-signature as Attending Physician, Tank Watts MD I agree with the assessment and shelby plan of care. Disposition: 02/07/21 20:20 Discharged to Home. Impression: Laceration without foreign body of left index finger without damage to nail, Laceration without foreign body of left middle finger without damage to nail, Laceration without foreign body of left little finger without damage to nail - avulsion laceration. - Condition is Stable. - Discharge Instructions: Laceration Care, Adult, [id number]. - Prescriptions for Tramadol 50 mg Oral Tablet - take 1 tablet by ORAL route every 8 hours as needed; 12 tablet. - Medication Reconciliation Form, Thank You Letter, Antibiotic Education, Prescription Opioid Use form. - Work release form (02/08/21 13:56). bd - Follow up: Emergency Department; When: As needed; Reason: Worsening of condition. Follow up: Private Physician; When: 2 - 3 days; Reason: Recheck today's complaints, Continuance of care, Re-evaluation by your physician. Signatures: Dispatcher [employer] EDMS Laxmi Palomo, DEBRANDER-Toshia DEBRANDER-Tank Alberto MD MD cha Habalo, Winsy, RN RN wh Lewis, Lynsay, RN RN ll Clarisa Tomlinson RN RN bw Dirrim, Barbara bd Corrections: (The following items were deleted from the chart) 02/07 20:42 19:44 Constitutional: Negative for fever, chills, and weight loss, Neuro: Negative for kb headache, weakness, numbness, tingling, and seizure, kb 20:44 20:20 02/07/2021 20:20 Discharged to Home. Impression: Laceration without foreign body wh of left index finger without damage to nail; Laceration without foreign body of left middle finger without damage to nail; Laceration without foreign body of left little finger without damage to nail - avulsion laceration. Condition is Stable. Forms are Medication Reconciliation Form, Thank You Letter, Antibiotic Education, Prescription Opioid Use. Follow up: Emergency Department; When: As needed; Reason: Worsening of condition. Follow up: Private Physician; When: 2 - 3 days; Reason: Recheck today's complaints, Continuance of care, Re-evaluation by your physician. kb
[2021-02-08 16:19] VITALS: TEMP 98.5; O2SAT 98
[2021-02-08 16:34] VITALS: BP 132/72
== END 2021-02-07 20:44 | disposition home or self-care (01) ==
LOC: ER 16:25
PROC: 0JQK0ZZ Repair Left Hand Subcutaneous Tissue and Fascia, Open Approach (ICD-10-PCS; principal; 2021-02-07)
DX: S61.211A Laceration without foreign body of left index finger without damage to nail, initial encounter (principal); S61.213A Laceration without foreign body of left middle finger without damage to nail, initial encounter; S61.217A Laceration without foreign body of left little finger without damage to nail, initial encounter; W29.8XXA Contact with other powered hand tools and household machinery, initial encounter; Y93.89 Activity, other specified; Y92.009 Unspecified place in unspecified non-institutional (private) residence as the place of occurrence of the external cause; I10 Essential (primary) hypertension; F17.210 Nicotine dependence, cigarettes, uncomplicated
CPT/HCPCS: 64450; 99284

== ENCOUNTER 2021-02-12 14:38 | Emergency (ER) | payer BC ==
--- OUTSIDE RECORDS SUMMARY | 2021-02-12 14:42 | XMS REPORT | Continuity of Care Document ---
:1960 Author Organization [facility] t Address [address] [place] [address] Care Team Providers Name Role Phone Mihir [...] [facility] ibuprofen ibuprofen Yes Gonzalo not [facility] Shingrix Shingrix Yes [facility] [...] ID 2020-12-08 2020-12-08 Office GARCÍA Almonte [id number] 09:18:23 09:33:23 Visit [facility] [id number] Surgical [id number] Specialti [id number] [address] [place] 2020-12-08 2020-12-08 Letter Gage PASORAYA [id number] 00:00:00 00:00:00 (Out) [facility] [id number] Surgical [id number] Specialti [id number] [address] [place] 2019-07-08 2019-07-08 [facility] [id number] [facility] 15:30:00 15:30:00 [facility] 2019-06-03 2019-06-03 [facility] [id number] [facility] 09:30:00 09:30:00 t [facility] 2018-09-12 2018-09-12 Outpatient Claudia Razo [id number] 08:00:00 08:00:00 t [facility] Results This patient has no known results.
[2021-02-12] MEDS ORDERED: SMZ./TMP. 800/160 MG TABLET ONE (18:01)
--- NOTE | 2021-02-12 18:20 | EDPHYS ---
Physician Documentation [facility] Name: Star Sullivan Age: 60 yrs Sex: Male : 1960 Arrival Date: 02/12/2021 Time: 14:39 Bed 17 Private MD: ED Physician Kel Carter HPI: 02/12 18:53 This 60 yrs old Male presents to ER via Ambulatory with complaints of Suture kb Removal. 18:53 The patient has sutures on the left index finger. Previous treatment: The patient was kb initially treated 6 day(s) ago, the care was rendered at [facility]. Sutures/jeannie progress: The patient's wound displays purulent drainage, redness at site. The patient has not experienced similar symptoms in the past. The patient has not recently seen a physician. Pt had sutures placed on 02/06. Followed up with Dr Monk yesterday and was started on Augmentin. Came today because redness and swelling have increased. Historical: - Allergies: 15:19 No Known Allergies; ca1 - Home Meds: 15:19 lisinopril Oral [Active]; Hydrochlorothiazide Oral [Active]; ca1 - PMHx: 15:19 Hypertension; ca1 - PSHx: 15:19 cataract repair; ca1 - Immunization history:: Flu vaccine is up to date. - Social history:: Smoking status: Patient reports the use of cigarette tobacco products, smokes one-half pack cigarettes per day. ROS: 18:50 Constitutional: Negative for fever, chills, and weight loss, MS/Extremity: Negative for kb injury and deformity, Neuro: Negative for headache, weakness, numbness, tingling, and seizure. 18:50 Skin: Positive for erythema, swelling, of the left index finger. Exam: 18:50 Constitutional: This is a well developed, well nourished patient who is awake, alert, kb and in no acute distress. Head/Face: Normocephalic, atraumatic. MS/ Extremity: Pulses equal, no cyanosis. Neurovascular intact. Full, normal range of motion. Neuro: Awake and alert, GCS 15, oriented to person, place, time, and situation. Moves all extremities. Normal gait. 18:50 Skin: Wound recheck: Suture laceration closure: mild drainage, moderate erythema, moderate swelling. Vital Signs: 15:13 BP 157 / 69; Pulse 77; Resp 16 S; Temp 97.6(TE); Pulse Ox 99% on R/A; Weight 95.25 kg ca1 (R); Height 5 ft. 5 in. (165.10 cm) (R); Pain 8/10; 15:13 Body Mass Index 34.95 (95.25 kg, 165.10 cm) ca1 Procedures: 18:52 Suture/Staple removal: Removed 7 sutures, from left index finger, site appears kb reddened, Patient tolerated well. MDM: 17:29 Patient medically screened. kb 18:46 Data reviewed: vital signs, nurses notes. Data interpreted: Pulse oximetry: on room air kb is 99 %. Interpretation: normal. Counseling: I had a detailed discussion with the patient and/or guardian regarding: the historical points, exam findings, and any diagnostic results supporting the discharge/admit diagnosis, the need for outpatient follow up, a family practitioner, to return to the emergency department if symptoms worsen or persist or if there are any questions or concerns that arise at home. ED course: Pt prefers to try outpatient antibiotics instead of being admitted for IV antibiotics at this time. Pt educated to return immediately for worsening symptoms. Pt also educated to return if symptoms are not improving in 2 days because IV antibiotics may be needed. 02/13 15:04 ED course: Follow up call placed to pt. I spoke to his . She reports symptoms have kb not improved. Educated on importance of him returning for worsening symptoms. . Administered Medications: 02/12 18:01 Drug: Bactrim (160 mg-800 mg (DS) 1 tablet Route: PO; iw Disposition: 19:21 Co-signature as Attending Physician, Kel Carter MD I agree with the assessment and kdr plan of care. Disposition: 02/12/21 18:19 Discharged to Home. Impression: Local infection of the skin and subcutaneous tissue, unspecified. - Condition is Stable. - Discharge Instructions: Cellulitis, Adult, [id number], Wound Infection, [id number]. - Prescriptions for Bactrim DS 800- 160 mg Oral Tablet - take 1 tablet by ORAL route every 12 hours for 10 days; 20 tablet. - Medication Reconciliation Form, Thank You Letter, Antibiotic Education, Prescription Opioid Use form. - Follow up: Emergency Department; When: As needed; Reason: Worsening of condition. Follow up: Private Physician; When: 2 - 3 days; Reason: Recheck today's complaints, Continuance of care, Re-evaluation by your physician. Signatures: Laxmi Palomo FNP-C FNP-Kel Nesbitt MD MD [facility] Lenore Ashley RN RN iw Chris, AVA Jones RN ca1 Corrections: (The following items were deleted from the chart) 18:49 18:19 02/12/2021 18:19 Discharged to Home. Impression: Local infection of the skin and iw subcutaneous tissue, unspecified. Condition is Stable. Forms are Medication Reconciliation Form, Thank You Letter, Antibiotic Education, Prescription Opioid Use. Follow up: Emergency Department; When: As needed; Reason: Worsening of condition. Follow up: Private Physician; When: 2 - 3 days; Reason: Recheck today's complaints, Continuance of care, Re-evaluation by your physician. kb
--- NOTE | 2021-02-12 18:20 | ER ---
Nurse's Notes [facility] Name: Star Sullivan Age: 60 yrs Sex: Male : 1960 Arrival Date: 02/12/2021 Time: 14:39 Bed 17 Private MD: Diagnosis: Local infection of the skin and subcutaneous tissue, unspecified Presentation: 02/12 15:13 Chief complaint: Patient states: Lac repair on 02/07/2021. Lac on L index finger. Now, ca1 index finger, swelling getting bigger, swelling on L palm, redness, drainage and pain reported. Coronavirus screen: Client denies travel out of the [place] in the last 14 days. At this time, the client does not indicate any symptoms associated with coronavirus-19. Ebola Screen: Patient negative for fever greater than or equal to 101.5 degrees Fahrenheit, and additional compatible Ebola Virus Disease symptoms Patient denies exposure to infectious person. Patient denies travel to an Ebola-affected area in the 21 days before illness onset. No symptoms or risks identified at this time. Initial Sepsis Screen: Does the patient meet any 2 criteria? No. Patient's initial sepsis screen is negative. Does the patient have a suspected source of infection? No. Patient's initial sepsis screen is negative. Risk Assessment: Do you want to hurt yourself or someone else? Patient reports no desire to harm self or others. Onset of symptoms was February 12, 2021. 15:13 Method Of Arrival: Ambulatory ca1 15:13 Acuity: AL 4 ca1 Historical: - Allergies: 15:19 No Known Allergies; ca1 - Home Meds: 15:19 lisinopril Oral [Active]; Hydrochlorothiazide Oral [Active]; ca1 - PMHx: 15:19 Hypertension; ca1 - PSHx: 15:19 cataract repair; ca1 - Immunization history:: Flu vaccine is up to date. - Social history:: Smoking status: Patient reports the use of cigarette tobacco products, smokes one-half pack cigarettes per day. Screenin:07 Abuse screen: Denies threats or abuse. Denies injuries from another. Nutritional iw screening: No deficits noted. Tuberculosis screening: No symptoms or risk factors identified. Fall Risk None identified. Assessment: 18:06 General: Appears in no apparent distress. Behavior is calm, cooperative. Pain: iw Complains of pain in left hand. Neuro: Level of Consciousness is awake, alert, obeys commands, Oriented to person, place, time, situation, Moves all extremities. Cardiovascular: Patient's skin is warm and dry. Respiratory: Respiratory effort is even, unlabored, Respiratory pattern is regular, symmetrical. Derm: Skin is healthy with good turgor. Injury Description: suture repair to left thumb and hand , appear infected, mild redness and swelling noted to palm of hand. Vital Signs: 15:13 BP 157 / 69; Pulse 77; Resp 16 S; Temp 97.6(TE); Pulse Ox 99% on R/A; Weight 95.25 kg ca1 (R); Height 5 ft. 5 in. (165.10 cm) (R); Pain 8/10; 15:13 Body Mass Index 34.95 (95.25 kg, 165.10 cm) ca1 ED Course: 14:39 Patient arrived in ED. as 15:18 Triage completed. ca1 15:19 Arm band placed on right wrist. ca1 16:11 Lax[facility]C [facility] kb 16:12 Kel Carter MD is Attending Physician. kb 17:27 Lenore Ashley, RN is Primary Nurse. iw 18:07 No provider procedures requiring assistance completed. Patient did not have IV access iw during this emergency room visit. Administered Medications: 18:01 Drug: Bactrim (160 mg-800 mg (DS) 1 tablet Route: PO; iw Outcome: 18:19 Discharge ordered by . kb 18:49 Patient left the ED. iw Signatures: Laxmi Palomo FNP-C FNP-Marian Stallings as Lenore Ashley, RN RN iw Karen Perez RN RN ca1
[2021-02-12 18:59] VITALS: BP 157/69; TEMP 97.6; O2SAT 99
== END 2021-02-12 18:49 | disposition home or self-care (01) ==
LOC: ER 14:38
DX: Z48.02 Encounter for removal of sutures (principal)
CPT/HCPCS: 99282

== ENCOUNTER 2021-02-13 18:27 | Inpatient (IN) | payer BC ==
--- OUTSIDE RECORDS SUMMARY | 2021-02-13 18:30 | XMS REPORT | Continuity of Care Document ---
:1960 Author Organization [facility] t Address [address] [place] [address] Care Team Providers Name Role Phone Mihir [...] - 00:00: 00:00 Memoria 00 :00 l [facility] ent Clinics Acetaminoph Acetaminoph Yes Gonzalo not [facility] en-Codeine en-Codeine Jesus defined [facility] - [facility]3 [facility] Clinics ibuprofen ibuprofen Yes Gonzalo not [facility] defined [facility] ent Clinics Shingrix Shingrix Yes [facility] not [facility] ent [facility] Twinrix Twinrix Yes Gonzalo not [facility] defined [facility] ent [facility] Penicillin Penicillin Yes Gonzalo not [facility] V Potassium V Potassium Jesus defined [facility] ent [facility] Lisinopril- Lisinopril- Yes Gonzalo not [facility] Hydrochloro Hydrochloro Jesus defined [facility] - thiazide thiazide [facility] ent [facility] Procedures This patient has no known procedures. Encounters Start End Encounter Admission Attending Care Care Encounter Source Date/Time Date/Time Type Type Clinicians Facility Department ID 2020-12-08 2020-12-08 Office Gage [facility] [id number] 09:18:23 09:33:23 Visit [facility] [id number] Surgical [id number] Specialti [id number] [address] [place] 2020-12-08 2020-12-08 Letter Gage [facility] [id number] 00:00:00 00:00:00 (Out) [facility] [id number] Surgical [id number] Specialti [id number] [address] [place] 2019-07-08 2019-07-08 [facility] [id number] 15:30:00 15:30:00 t [facility] Clinics 2019-06-03 2019-06-03 Outpatient Claudia Razo [id number] [address] 09:30:00 09:30:00 t [facility] 2018-09-12 2018-09-12 Outpatient Claudia Razo [id number] 08:00:00 08:00:00 t [facility] Results This patient has no known results.
--- NOTE | 2021-02-13 20:12 | ER ---
Nurse's Notes [facility] Name: Star Sullivan Age: 60 yrs Sex: Male : 1960 Arrival Date: 02/13/2021 Time: 18:28 Bed 13 Private MD: Mayra Monk H Diagnosis: Local infection of the skin and subcutaneous tissue, unspecified-failed outpatient treatment Presentation: 02/13 18:49 Chief complaint: Patient states: Was here yesterday for L hand swelling with a lac ca1 repair on the L index finger. finger still swollen, red and warm to touch. Coronavirus screen: Client denies travel out of the [place] in the last 14 days. At this time, the client does not indicate any symptoms associated with coronavirus-19. Ebola Screen: Patient negative for fever greater than or equal to 101.5 degrees Fahrenheit, and additional compatible Ebola Virus Disease symptoms Patient denies exposure to infectious person. Patient denies travel to an Ebola-affected area in the 21 days before illness onset. No symptoms or risks identified at this time. Initial Sepsis Screen: Does the patient meet any 2 criteria? No. Patient's initial sepsis screen is negative. Does the patient have a suspected source of infection? No. Patient's initial sepsis screen is negative. Risk Assessment: Do you want to hurt yourself or someone else? Patient reports no desire to harm self or others. Onset of symptoms was February 13, 2021. 18:49 Method Of Arrival: Ambulatory ca1 18:49 Acuity: AL 4 ca1 Triage Assessment: 23:51 General: Behavior is anxious. zb Historical: - Allergies: 18:52 No Known Allergies; ca1 - Home Meds: 18:52 Hydrochlorothiazide Oral [Active]; lisinopril Oral [Active]; ca1 - PMHx: 18:52 Hypertension; ca1 - PSHx: 18:52 cataract repair; ca1 - Immunization history:: Flu vaccine is up to date. - Social history:: Smoking status: Patient reports the use of cigarette tobacco products, smokes one-half pack cigarettes per day. Screenin:37 Abuse screen: Denies threats or abuse. Denies injuries from another. Nutritional zb screening: No deficits noted. Tuberculosis screening: No symptoms or risk factors identified. Fall Risk None identified. Assessment: 19:30 General: Appears in no apparent distress. uncomfortable, Denies fever, feeling ill, zb fatigue, chills. Pain: Complains of pain in palmar aspect of proximal phalanx of left index finger and left hand and left index finger Pain currently is 7 out of 10 on a pain scale. Neuro: Level of Consciousness is awake, alert, obeys commands, Oriented to person, place, time, situation. Cardiovascular: Patient's skin is warm and dry. Respiratory: Airway is patent Respiratory effort is even, unlabored, Respiratory pattern is regular, symmetrical. GI: Abdomen is round. : No deficits noted. Derm: Wound noted left index finger Wound is laceration, warm, red, swollen. Musculoskeletal: Range of motion: intact in all extremities. Injury Description: Laceration sustained to left index finger. 20:30 Reassessment: Patient appears in no apparent distress at this time. Patient and/or zb family updated on plan of care and expected duration. Pain level reassessed. Patient is alert, oriented x 3, equal unlabored respirations, skin warm/dry/pink. no changes at this time. 21:30 Reassessment: Patient appears in no apparent distress at this time. Patient and/or zb family updated on plan of care and expected duration. Pain level reassessed. Patient is alert, oriented x 3, equal unlabored respirations, skin warm/dry/pink. patient states medication works well. Patient states feeling better. 22:30 Reassessment: Patient appears in no apparent distress at this time. Patient and/or zb family updated on plan of care and expected duration. Pain level reassessed. Patient is alert, oriented x 3, equal unlabored respirations, skin warm/dry/pink. patient advised to eat before midnight. patient will be NPO. 22:34 Reassessment: report called to AVA Baxter on 2nd floor. zb Vital Signs: 18:49 BP 164 / 76; Pulse 83; Resp 16 S; Temp 99.2(TE); Pulse Ox 97% on R/A; Weight 95.25 kg ca1 (R); Height 5 ft. 5 in. (165.10 cm) (R); Pain 8/10; 21:14 BP 148 / 86; Pulse 86; Resp 18; Pulse Ox 97% on R/A; zb 22:26 BP 157 / 80; Pulse 75; Resp 16; Pulse Ox 98% on R/A; zb 23:50 BP 162 / 81; Pulse 88; Resp 16; Pulse Ox 97% on R/A; zb 18:49 Body Mass Index 34.95 (95.25 kg, 165.10 cm) ca1 ED Course: 18:28 Patient arrived in ED. am2 18:28 Mayra Monk DO is Private Physician. am2 18:51 Triage completed. ca1 18:52 Arm band placed on right wrist. ca1 19:04 Laxmi Palomo FNP-C is PHCP. kb 19:04 Thiago Maravilla MD is Attending Physician. kb 19:06 Laxmi Palomo FNP-C is PHCP. kb 19:06 Thiago Maravilla MD is Attending Physician. kb 19:30 Patient has correct armband on for positive identification. Placed in gown. Bed in low zb position. Call light in reach. Pulse ox on. NIBP on. 19:33 Roxy Saunders RN is Primary Nurse. zb 19:34 Hand Left 3 View In Process Unspecified. EDMS 20:11 Suman Melo MD is Hospitalizing Provider. kb 20:54 Chest Single View XRAY In Process Unspecified. EDMS 23:51 No provider procedures requiring assistance completed. Patient admitted, IV remains in zb place. Administered Medications: 20:52 Drug: Ancef (cefazolin) 1 grams Route: IVPB; Site: left antecubital; zb 21:00 Follow up: Response: No adverse reaction; IV Status: Completed infusion; IV Intake: 20mlzb 20:53 Drug: morphine 4 mg Route: IVP; Site: left antecubital; zb 21:20 Follow up: Response: No adverse reaction; Pain is decreased; RASS: Alert and Calm (0) zb 20:53 Drug: Zofran (Ondansetron) 4 mg Route: IVP; Site: left antecubital; zb 23:55 Follow up: Response: No adverse reaction; Marked relief of symptoms zb Intake: 21:00 IV: 20ml; Total: 20ml. zb Outcome: 20:12 Decision to Hospitalize by Provider. kb 23:52 Admitted to Med/surg accompanied by tech, room 212, with chart, Report called to AVA Baxter 23:52 Condition: stable 23:52 Instructed on the need for transfer, Demonstrated understanding of instructions. 02/14 00:11 Patient left the ED. rr5 Signatures: Dispatcher [employer] EDLaxmi Huff, REAL ESTATE AGENCY PRINCIPAL-C REAL ESTATE AGENCY PRINCIPAL-CkBridgette Shetty Raymond, RN RN rr5 Karen Perez RN RN ca1 Brown, Zipporah, RN RN zb
--- NOTE | 2021-02-13 20:13 | EDPHYS ---
Physician Documentation [facility] Name: Star Sullivan Age: 60 yrs Sex: Male : 1960 Arrival Date: 02/13/2021 Time: 18:28 Bed 13 Private MD: Mayra Monk H ED Physician Thiago Maravilla HPI: 02/13 19:11 This 60 yrs old Male presents to ER via Ambulatory with complaints of Hand kb Swelling. 19:11 The patient or guardian reports decreased range of motion, injury, pain, swelling, kb tenderness. The complaints affect the left index finger. Context: The problem was sustained outdoors, resulted from laceration caused by table saw. Onset: The symptoms/episode began/occurred 1 week(s) ago, and became worse 2 day(s) ago. Modifying factors: The symptoms are alleviated by nothing, the symptoms are aggravated by movement. Associated signs and symptoms: The patient has no apparent associated signs or symptoms. Severity of symptoms: At their worst the symptoms were moderate, in the emergency department the symptoms are unchanged. The patient has not experienced similar symptoms in the past. The patient has been recently seen at the [facility] Emergency Department, yesterday, for similar complaints. Pt sustained laceration to left index finger from table saw on 02/06/21. Pt returned yesterday for redness, swelling, drainage and pain. I saw pt and recommended admission with IV antibiotics. Pt wanted to try oral antibiotics first. I called pt today to follow up and reports symptoms were not improving. I recommended he return for admission and IV antibiotics. Since yesterday, there is more swelling, drainage and tenderness upon exam. Pt denies fever. Historical: - Allergies: 18:52 No Known Allergies; ca1 - Home Meds: 18:52 Hydrochlorothiazide Oral [Active]; lisinopril Oral [Active]; ca1 - PMHx: 18:52 Hypertension; ca1 - PSHx: 18:52 cataract repair; ca1 - Immunization history:: Flu vaccine is up to date. - Social history:: Smoking status: Patient reports the use of cigarette tobacco products, smokes one-half pack cigarettes per day. ROS: 19:11 Constitutional: Negative for fever, chills, and weight loss, Neuro: Negative for kb headache, weakness, numbness, tingling, and seizure. 19:11 MS/extremity: Positive for decreased range of motion, erythema, pain, swelling, tenderness, of the left index finger. 19:11 Skin: Positive for erythema, laceration(s), swelling, of the palmar aspect of proximal phalanx of left index finger. Exam: 19:23 Constitutional: This is a well developed, well nourished patient who is awake, alert, kb and in no acute distress. Head/Face: Normocephalic, atraumatic. Respiratory: Respirations even and unlabored. No increased work of breathing, no retractions or nasal flaring. Neuro: Awake and alert, GCS 15, oriented to person, place, time, and situation. Moves all extremities. Normal gait. 19:23 Musculoskeletal/extremity: Extremities: grossly normal except: noted in the left index finger: decreased ROM, erythema, pain, swelling, tenderness, ROM: limited active range of motion, limited active range of motion due to pain, Circulation is intact in all extremities. Sensation intact. 19:23 Skin: cellulitis, that is moderate, on the left index finger, infected laceration with surrounding erythema, drainage, swelling. Vital Signs: 18:49 BP 164 / 76; Pulse 83; Resp 16 S; Temp 99.2(TE); Pulse Ox 97% on R/A; Weight 95.25 kg ca1 (R); Height 5 ft. 5 in. (165.10 cm) (R); Pain 8/10; 21:14 BP 148 / 86; Pulse 86; Resp 18; Pulse Ox 97% on R/A; zb 22:26 BP 157 / 80; Pulse 75; Resp 16; Pulse Ox 98% on R/A; zb 23:50 BP 162 / 81; Pulse 88; Resp 16; Pulse Ox 97% on R/A; zb 18:49 Body Mass Index 34.95 (95.25 kg, 165.10 cm) ca1 MDM: 19:11 Patient medically screened. kb 19:21 Data reviewed: vital signs, nurses notes. Data interpreted: Pulse oximetry: on room air kb is 97 %. Interpretation: normal. 20:09 Counseling: I had a detailed discussion with the patient and/or guardian regarding: the kb historical points, exam findings, and any diagnostic results supporting the discharge/admit diagnosis, lab results, radiology results, the need for further work-up and treatment in the hospital. Physician consultation: Dmitri CALLE was contacted at 20:09, regarding admission, to the medical/surgical unit. patient's condition, and will see patient in ED, shortly. 20:09 Physician consultation: Joey Geller MD was contacted at 20:10, regarding consult, kb patient's condition, and will see patient in inpatient room, tomorrow, wants pt NPO . 02/13 19:07 Order name: CBC with Diff kb 02/13 19:07 Order name: Basic Metabolic Panel kb 02/13 19:07 Order name: Blood Culture Adult (2) kb 02/13 19:07 Order name: Procalcitonin kb 02/13 19:07 Order name: Lactate; Complete Time: 22:23 kb 02/13 19:07 Order name: CBC with Automated Diff; Complete Time: 22:23 EDMS 02/13 19:07 Order name: Basic Metabolic Panel; Complete Time: 22:23 EDMS 02/13 19:07 Order name: Blood Culture EDSD 02/13 19:07 Order name: Procalcitonin; Complete Time: 22:23 EDMS 02/13 19:14 Order name: Hand Left 3 View; Complete Time: 20:37 EDMS 02/13 20:08 Order name: Chest Single View XRAY; Complete Time: 22:23 kb 02/13 22:27 Order name: SARS-COV-2 RT PCR EDSD 02/13 19:07 Order name: IV Start; Complete Time: 20:33 kb 02/13 20:08 Order name: EKG; Complete Time: 20:09 kb 02/13 20:08 Order name: EKG - Nurse/Tech; Complete Time: 21:11 kb Administered Medications: 20:52 Drug: Ancef (cefazolin) 1 grams Route: IVPB; Site: left antecubital; zb 21:00 Follow up: Response: No adverse reaction; IV Status: Completed infusion; IV Intake: 20mlzb 20:53 Drug: morphine 4 mg Route: IVP; Site: left antecubital; zb 21:20 Follow up: Response: No adverse reaction; Pain is decreased; RASS: Alert and Calm (0) zb 20:53 Drug: Zofran (Ondansetron) 4 mg Route: IVP; Site: left antecubital; zb 23:55 Follow up: Response: No adverse reaction; Marked relief of symptoms zb Disposition: 02/14 06:06 Co-signature as Attending Physician, Thiago Maravilla MD. mh7 Disposition: 02/13/21 20:12 Hospitalization ordered by Suman Melo for Inpatient Admission. Preliminary diagnosis is Local infection of the skin and subcutaneous tissue, unspecified - failed outpatient treatment. - Bed requested for Telemetry/MedSurg (Inpatient). - Status is Inpatient Admission. rr5 - Condition is Stable. - Problem is new. - Symptoms are unchanged. Signatures: Dispatcher [employer] EDSD Laxmi Palomo, CABIN CLEANER-C CABIN CLEANER-Ckb Dmitri Curran FNP-Toshia CABIN CLEANER-ClaSuman Gonzalez, RN RN rr5 Karen Perez RN RN ca1 Thiago Maravilla MD MD 7 Zenaida Michaud RN RN rd1 Roxy Saunders RN RN zb Corrections: (The following items were deleted from the chart) 02/13 19:14 19:08 Hand Right 3 View+RAD.RAD.BRZ ordered. EDSD EDMS 21:37 20:09 CORONAVIRUS+MR.LAB.BRZ ordered. EDSD EDSD 22:33 20:12 Hospitalization Ordered by Suman Melo MD for Inpatient Admission. Preliminary rd1 diagnosis is Local infection of the skin and subcutaneous tissue, unspecified - failed outpatient treatment. Bed requested for Telemetry/MedSurg (Inpatient). Status is Inpatient Admission. Condition is Stable. Problem is new. Symptoms are unchanged. 02/14 00:11 02/13 22:33 02/13/2021 20:12 Hospitalization Ordered by Suman Melo MD for Inpatient rr5 Admission. Preliminary diagnosis is Local infection of the skin and subcutaneous tissue, unspecified - failed outpatient treatment. Bed requested for Telemetry/MedSurg (Inpatient). Status is Inpatient Admission. Condition is Stable. Problem is new. Symptoms are unchanged. rd1
--- NOTE | 2021-02-13 20:30 | RAD REPORT ---
EXAM DESCRIPTION: RAD - Hand Left 3 View - 02/13/2021 7:34 pm CLINICAL HISTORY: pain, swelling right first digit COMPARISON: Hand Left 3 View dated 02/07/2021 FINDINGS: Soft tissue swelling is seen distal second and third digits. No foreign body seen. No frac ture is evident.
[2021-02-13 20:41] LABS: Absolute Lymphocytes (CBC) 1.8 K/uL (0.7-4.9); Basophils % 0.7 % (0-1.3); Hematocrit 36.9 % (39.6-49.0); Lymphocytes % 15.8 % (15.3-44.8); MPV 9.3 fL (7.6-11.3); RBC Red Blood Cell Count 4.26 M/uL (4.33-5.43)
[2021-02-13] MEDS ORDERED: MORPHINE 4 MG/ML SYR ONE (20:49)
[2021-02-13] MEDS ORDERED: CEFAZOLIN/SWI 1gm 1 GM/10 ML SYR ONE (20:49)
[2021-02-13] MEDS ORDERED: ONDANSETRON 4 MG/2 ML VIAL ONE (20:49)
--- NOTE | 2021-02-13 20:59 | RAD REPORT ---
EXAM DESCRIPTION: RAD - Chest Single View - 02/13/2021 8:54 pm CLINICAL HISTORY: preop Chest pain. COMPARISON: Chest Single View dated 08/03/2020 FINDINGS: Portable technique limits examination quality. The lungs are grossly clear. The heart is normal in size. No displaced fractures. IMPRESSION: No acute intrathoracic process suspected.
[2021-02-13 21:06] LABS: BUN Blood Urea Nitrogen 19 mg/dL (7-18); Bicarbonate 25 mmol/L (21-32); Glucose Level 94 mg/dL (74-106); Potassium 3.7 mmol/L (3.5-5.1); Sodium Level 137 mmol/L (136-145)
--- NOTE | 2021-02-13 23:14 | P.HP ---
Certification for Inpatient Patient admitted to: Inpatient With expected LOS: >2 Midnights Patient will require the following post-hospital care: None Practitioner: I am a practitioner with admitting privileges, knowledge of patient current condition, hospital course, and medical plan of care. Services: Services provided to patient in accordance with Admission requirements found in Title 42 Section 412.3 of the Code of Federal Regulations <Dmitri Curran - Last Filed: 02/13/21 23:09> Patient History Date of Service: 02/13/21 Primary Care Provider: dr. Monk Reason for admission: Cellulitis left hand History of Present Illness: 60-year-old male with history of hypertension presents emergency de partment for left hand infection. 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 Patient had irrigation of the wound followed by closure with external sutures. Patient follow up with primary care doctor was placed on Augmentin as there was some cellulitis noted, patient came back to the emergency department for suture removal as he is having increased swelling/tightness/pain noted to the area and sutures were removed. Patient was placed on Bactrim as well. Today patient with increasing swelling, pain to the left 2nd/3rd digits, pain with extension, significant amount of erythema noted to former aspect of 2nd and 3rd digits. Patient given IV Ancef and plastic surgery was consulted who will evaluate patient in the morning for possible debridement. - Past Medical/Surgical History -: Hypertension -: Cataract surgery -: Left knee surgery Psychosocial/ Personal History: Patient is employed, lives with his family - Family History Family History: Reviewed- Non-Contributory - Social History Smoking Status: Current every day smoker Counseled patient to stop smoking for: less than 10 minutes Alcohol use: Yes CD- Drugs: No Caffeine use: Yes Place of Residence: Home <Dmitri Curran - Last Filed: 02/13/21 23:09> Date of Service: 02/15/21 <Suman Melo - Last Filed: 02/15/21 16:12> Allergies No Known Allergies Allergy (Verified 02/14/21 04:09) Review of Systems Musculoskeletal: Hand Pain, As per HPI Integumentary: As per HPI <Dmitri Curran - Last Filed: 02/13/21 23:09> Physical Examination - Physical Exam General: Alert, In no apparent distress HEENT: Atraumatic, PERRLA, Mucous membr. moist/pink Neck: Supple, 2+ carotid pulse no bruit, No LAD Respiratory: Clear to auscultation bilaterally, Normal air movement Cardiovascular: Regular rate/rhythm, Normal S1 S2 Gastrointestinal: Normal bowel sounds, No tenderness Musculoskeletal: Erythema, Tenderness, Warmth, Other (Pain with passive extension of the affected digits, pain with flexion, circumferential swelling noted to 2nd. Left digits with erythema noted) Integumentary: No rashes, Tenderness/swelling, Erythema, Warmth Neurological: Normal speech, Normal strength at 5/5 x4 extr, Normal tone, Normal affect - Studies Laboratory Data (last 24 hrs) 02/13/21 20:26: Sodium 137, Potassium 3.7, BUN 19 H, Creatinine 0.76, Glucose 94 02/13/21 20:26: WBC 11.40 H, Hgb 12.6 L, Hct 36.9 L, Plt Count 297 <Dmitri Curran - Last Filed: 02/13/21 23:09> Assessment and Plan - Plan Assessment Cellulitis of the left 2nd and 3rd digit - failed outpatient therapy secondary to power tools injury Hypertension Plan Cellulitis of the left 2nd and 3rd digit - failed outpatient therapy secondary to power tools injury: NPO after midnight, continue IV ancef, p.r.n. pain and nausea medications. Plastic surgery consulted, will see patient in the morning, possible debridement. DVT prophylaxis with SCDs at this time due to possible planned surgical intervention. Hypertension: Obtain and continue home medications as appropriate. Discharge Plan: Home Plan to discharge in: 48 Hours - Advance Directives Does patient have a Living Will: No Does patient have a Durable POA for Healthcare: No - Code Status/Comfort Care Code Status Assessed: Yes (Full code) Critical Care: No Time Spent Managing Pts Care (In Minutes): 55 <Dmitri Curran - Last Filed: 02/13/21 23:09> - Plan Plan of care reviewed as noted above. Cellulitis of hand, concern for tenosynovitis Surgery consulted <Suman Melo - Last Filed: 02/15/21 16:12>
[2021-02-14] MEDS ORDERED: ONDANSETRON 4 MG/2 ML VIAL IV PRN (00:27)
[2021-02-14] MEDS ORDERED: MORPHINE 2 MG/ML SYR IV PRN (00:27)
[2021-02-14] MEDS: HYDROCODONE/APAP 7.5/325 MG TAB PO PRN ×3 (00:56→20:54)
[2021-02-14] MEDS: NA CHLORIDE 0.9% 1,000 ML IV SCH ×3 (00:56→23:19)
[2021-02-14] MEDS ORDERED: CEFAZOLIN/NS 1gm 1 GM/50 ML BAG IVPB SCH (01:00)
[2021-02-14] MEDS: CEFAZOLIN/SWI 1gm 1 GM/10 ML SYR IV SCH ×2 (01:15→09:49)
[2021-02-14] MEDS ORDERED: CEFAZOLIN/SWI 1gm 1 GM/10 ML SYR ONE (01:21)
[2021-02-14 04:16] VITALS: BMI 34.9
[2021-02-14 06:22] LABS: Absolute Lymphocytes (CBC) 1.7 K/uL (0.7-4.9); Basophils % 0.8 % (0-1.3); Lymphocytes % 20.8 % (15.3-44.8); MPV 9.5 fL (7.6-11.3); RBC Red Blood Cell Count 3.68 M/uL (4.33-5.43)
[2021-02-14 06:55] LABS: Albumin 2.8 g/dL (3.4-5.0); Bilirubin Total 0.3 mg/dL (0.2-1.0); Potassium 3.4 mmol/L (3.5-5.1); Protein, Total 6.3 g/dL (6.4-8.2)
[2021-02-14] MEDS: KCL 20 MEQ/100 mL IVPB 20 MEQ/100 ML BAG IV SCH ×2 (09:00→11:00)
[2021-02-14] MEDS ORDERED: Ringers Lactate 1,000 ML IV ONE (09:24)
[2021-02-14] MEDS ORDERED: propofoL 200 MG/20 ML VIAL IV ONE (10:35)
[2021-02-14] MEDS ORDERED: FENTANYL CITR 100 MCG/2 ML ONE (10:35)
[2021-02-14] MEDS ORDERED: LIDOCAINE 2% MPF 5 ML VIAL ONE (10:35)
[2021-02-14] MEDS ORDERED: dexAMETHasone 10 MG/ML VIAL ONE (10:53)
[2021-02-14] MEDS ORDERED: KETOROLAC 30 MG/ML INJ ONE (10:54)
[2021-02-14] MEDS ORDERED: ONDANSETRON 4 MG/2 ML VIAL ONE (11:08)
[2021-02-14] MEDS ORDERED: GLYCOPYRROLATE 0.2 MG/ML SYR ONE ×2 (11:08→11:12)
[2021-02-14] MEDS ORDERED: Phenylephrine HCl 10 MG/ML 1 ML VIAL ONE (11:11)
[2021-02-14] MEDS: FENTANYL CITR 100 MCG/2 ML ONE ×3 (11:23→11:39)
[2021-02-14] MEDS ORDERED: ATROPINE SULF 1 MG/10 ML SYR IV ONE (11:34)
[2021-02-14] MEDS: HYDROMORPHONE HCL 1 MG/ML INJ ONE ×3 (11:39→11:56)
[2021-02-14] MEDS ORDERED: POTASSIUM CL SA 10 MEQ TAB PO ONE (13:00)
[2021-02-14] MEDS: CEFAZOLIN 500 MG in NA CHLORIDE 0.9% 50 ML IV SCH ×3 (13:05→23:20)
--- NOTE | 2021-02-14 17:05 | P.PN ---
Subjective Date of Service: 02/14/21 Primary Care Provider: dr. Monk Chief Complaint: Cellulitis left hand Subjective: No new changes (doing well, with some pain in finger, continues with swelling, no active drainage, no worsening) Review of Systems 10-point ROS is otherwise unremarkable Physical Examination - Vital Signs Temperature: 98.0 F Blood Pressure: 118/80 Pulse: 62 Respirations: 18 Pulse Ox (%): 98 - Studies Laboratory Data (last 24 hrs) 02/13/21 20:26: Sodium 137, Potassium 3.7, BUN 19 H, Creatinine 0.76, Glucose 94 02/13/21 20:26: WBC 11.40 H, Hgb 12.6 L, Hct 36.9 L, Plt Count 297 Assessment & Plan Physician Review Additional Text: Physical Exam General: Alert, In no apparent distress HEENT: MMM, sclera anicteric Pulm: CTAB, nonlabored on RA CV: Regular rate/rhythm, Normal S1 S2 Abd: Normal bowel sounds, No tenderness Ext: Erythema, Tenderness, Warmth, pain with passive extension of the affected digits, pain with flexion Skin: No rashes, Tenderness/swelling, Erythema, Warmth Problem List Cellulitis of the left 2nd and 3rd digit - failed outpatient therapy secondary to power tools injury Hypertension failed outpatient therapy secondary to power tools injury NPO, Ancef, for OR today with plastics/hand, PRN pain meds continue home meds Dispo: anticipate dc home in ~48hrs, pending surgical eval Time Spent Managing Pts Care (In Minutes): 35
--- NOTE | 2021-02-14 20:09 | OP ---
Surgeon: Joey Geller MD Preoperative Diagnosis: Laceration of the left index finger and volar surface. Postoperative Diagnoses: Laceration of the left index finger and volar surface with complete transec tion of profundus tendon, left index finger, complete transection of radial, ulnar, and digital arter ies and distal nerves and left index finger, abscess of the flexor sheath. Procedures Performed: Debridement of skin and subcutaneous tissue, release of A1 aline, carpal tunn el release, incision and debridement of the abscess cavity. Anesthesia: General. Procedure In Detail: After satisfactory general anesthesia, left hand was prepped with Betadine scru b and paint. Dry sterile drapes were applied in usual manner. The arm was elevated and tourniquet i nflated to 250 mmHg. Hand was placed on the Roto table. A transverse incision over the flexor aspec t of the proximal phalanx was debrided. Skin and subcutaneous tissue pus were encountered. Cultures were taken. The sheath had been transected. The distal portion of the profundus tendon was identif ied in the wound. A proximal extension was made, bur like nature and kept encountering pus. This re quired extension all over the carpal tunnel. Carpal incision was made at the level of the transverse carpal ligament. The flexor tendon of the profundus was inflamed, but not great. No gross pus. Pu s existed all the way to the level of the superficial arch and this abscess was treated at that level . The wound was then jet lavaged, irrigated with 3 L of Betadine solution. Tourniquet was released. Electrocautery was used for hemostasis. Wound was packed with Betadine-soaked quarter-inch Nu Gauze, 2-inch Farrah Kerlix. The patient tolerated the procedure well. GH/MODL Voice ID: [id number] Report ID: [id number]
[2021-02-15] MEDS: MEPERIDINE HCL 25 MG/ML SYR IM PRN ×3 (00:21→23:32)
[2021-02-15 04:39] LABS: Absolute Lymphocytes (CBC) 0.9 K/uL (0.7-4.9); Basophils % 0.1 % (0-1.3); Hematocrit 30.8 % (39.6-49.0); Lymphocytes % 7.5 % (15.3-44.8); MPV 9.5 fL (7.6-11.3); RBC Red Blood Cell Count 3.56 M/uL (4.33-5.43)
[2021-02-15 04:56] LABS: ALT/SGPT 56 U/L (12-78); AST/SGOT 35 U/L (15-37); Albumin 2.8 g/dL (3.4-5.0); Alkaline Phosphatase 139 U/L (45-117); BUN Blood Urea Nitrogen 23 mg/dL (7-18); Bicarbonate 24 mmol/L (21-32); Bilirubin Total 0.2 mg/dL (0.2-1.0); Glucose Level 163 mg/dL (74-106); Potassium 4.6 mmol/L (3.5-5.1); Protein, Total 6.4 g/dL (6.4-8.2); Sodium Level 139 mmol/L (136-145)
[2021-02-15 05:20] LABS: Blood Morphology Comment NOT SEEN (NOT SEEN); Platelet Estimate ADEQ
[2021-02-15] MEDS: NA CHLORIDE 0.9% 1,000 ML IV SCH (06:27)
[2021-02-15] MEDS: CEFAZOLIN 500 MG in NA CHLORIDE 0.9% 50 ML IV SCH ×4 (06:33→23:32)
--- NOTE | 2021-02-15 10:25 | DS ---
The patient is being dressing today. He is n.p.o. at midnight. will start closing the wound. He will try a two-stage tendon reconstruction. He will need nerve or artery repair as well. CELINA/MYRA Voice ID: [id number] Report ID: [id number]
[2021-02-15] MEDS ORDERED: HYDROMORPHONE HCL 2 MG/ML inj IV ONE (12:22)
--- NOTE | 2021-02-15 16:14 | P.PN ---
Subjective Date of Service: 02/15/21 Primary Care Provider: dr. Monk Chief Complaint: Cellulitis left hand Subjective: No new changes (Status post debridement patient reports pain is tolerable with medication, passing flatus, no nausea/vomiting, urinating without issue.) Review of Systems 10-point ROS is otherwise unremarkable Physical Examination - Vital Signs Temperature: 98.4 F Blood Pressure: 119/57 Pulse: 68 Respirations: 16 Pulse Ox (%): 96 Assessment & Plan Physician Review Additional Text: Physical Exam General: Alert, In no apparent distress HEENT: MMM, sclera anicteric Pulm: CTAB, nonlabored on RA CV: Regular rate/rhythm, Normal S1 S2 Abd: Normal bowel sounds, No tenderness Ext: L hand: Surgical dressing in place, clean dry and intact, warm/perfused distally Problem List Cellulitis of the left 2nd and 3rd digit - failed outpatient therapy secondary to power tools injury Hypertension failed outpatient therapy secondary to power tools injury Continue antibiotics, status post debridement on 02/14 To go back to the OR tomorrow 02/16 continue home meds, PRN pain medications Dispo: anticipate dc home in ~48-72hrs, will likely require 1-2 more was houts/closure Time Spent Managing Pts Care (In Minutes): 35
[2021-02-15] MEDS: HYDROCODONE/APAP 7.5/325 MG TAB PO PRN (17:15)
[2021-02-16] MEDS: CEFAZOLIN 500 MG in NA CHLORIDE 0.9% 50 ML IV SCH ×4 (05:25→23:31)
[2021-02-16] MEDS: MEPERIDINE HCL 25 MG/ML SYR IM PRN (05:54)
[2021-02-16 06:17] LABS: Absolute Lymphocytes (CBC) 2.7 K/uL (0.7-4.9); Basophils % 0.4 % (0-1.3); Hematocrit 33.4 % (39.6-49.0); Lymphocytes % 23.2 % (15.3-44.8); MPV 9.8 fL (7.6-11.3); RBC Red Blood Cell Count 3.84 M/uL (4.33-5.43)
[2021-02-16] MEDS ORDERED: Ringers Lactate 1,000 ML IV ONE (08:46)
[2021-02-16] MEDS ORDERED: MIDAZOLAM HCL 2 MG/2 ML INJ ONE (08:48)
[2021-02-16] MEDS ORDERED: FENTANYL CITR 100 MCG/2 ML ONE (08:48)
[2021-02-16] MEDS ORDERED: LIDOCAINE 1% MPF 5 ML VIAL ONE (08:48)
[2021-02-16] MEDS ORDERED: propofoL 200 MG/20 ML VIAL IV ONE (08:48)
[2021-02-16] MEDS ORDERED: KETOROLAC 30 MG/ML INJ ONE (09:24)
[2021-02-16] MEDS ORDERED: dexAMETHasone 10 MG/ML VIAL ONE (09:24)
[2021-02-16] MEDS ORDERED: ONDANSETRON 4 MG/2 ML VIAL ONE ×2 (09:28→10:10)
[2021-02-16] MEDS ORDERED: EPHEDRINE SULF 50 MG/ML VIAL ONE (09:29)
[2021-02-16] MEDS ORDERED: NS 0.9% VIAL 10 ML ONE (09:30)
[2021-02-16] MEDS: HYDROMORPHONE HCL 1 MG/ML INJ ONE ×6 (09:50→10:20)
--- NOTE | 2021-02-16 11:08 | OP ---
Surgeon: Joey Geller MD Preoperative Diagnosis: Open wound of the left index finger, left hand. Postoperative Diagnosis: Open wound of the left index finger, left hand. Procedure: Debridement of skin, subcutaneous tissue, tendon, simple closure, 8 cm wound. Anesthesia: General. Procedure In Detail: After satisfactory general anesthesia, left hand was prepped with Betadine scrub and paint. Dry sterile drapes were applied in usual manner. The arm was elevated, exsanguinated with an Esmarch, and tourniquet inflated to 250 mmHg. Hand was placed on the Roto Lock table. Curettes were used to debride the skin and subcutaneous tissue. The hand was then scrubbed with Betadine scrub brush and then jet lavaged and irrigated with 3 L of dilute Betadine solution. There were no collections of pus present at this time. Some discolored skin tissue was removed. Tourniquet was released. Electrocautery was used for hemostasis. The wound was closed proximally with 4-0 Prolene simple sutures, vertical mattress, and horizontal mattress. This left the distal portion from the MCP joint to the middle phalanx open. It was packed with Betadine-soaked quarter-inch Nu Gauze, 2-inch Farrah Kerlix. Xeroform was placed over the closure. The patient tolerated the procedure well and returned to recovery room. CELINA/MYRA Voice ID: [id number] Report ID: [id number] [id number]
[2021-02-16 15:47] LABS: Urine Appearance CLEAR; Urine Bilirubin NEGATIVE (NEG); Urine Blood NEGATIVE (NEG); Urine Color YELLOW; Urine Glucose NEGATIVE (NEG); Urine Protein NEGATIVE (NEG); Urine Specific Gravity 1.025 (1.005-1.030); Urine Urobilinogen 0.2 mg/dL (0.2-1.0); Urine pH 6.5 (5.0-7.0)
[2021-02-16 15:55] LABS: Urine Microscopic Reflex NO UMIC
[2021-02-16] MEDS: HYDROCODONE/APAP 7.5/325 MG TAB PO PRN ×2 (17:31→23:27)
--- NOTE | 2021-02-16 18:30 | P.PN ---
Subjective Date of Service: 02/16/21 Primary Care Provider: dr. Monk Chief Complaint: Cellulitis left hand Patient has no complain. Patient underwent another debridement today. Physical Examination - Vital Signs Temperature: 97.5 F Blood Pressure: 145/67 Pulse: 67 Respirations: 19 Pulse Ox (%): 97 - Physical Exam General: Alert, In no apparent distress, Oriented x3 Neck: JVD not distended Respiratory: Clear to auscultation bilaterally, Normal air movement Cardiovascular: No edema, Regular rate/rhythm, Normal S1 S2 Gastrointestinal: Soft and benign, Non-distended Musculoskeletal: Other (Left index finger dressed) Neurological: Normal strength at 5/5 x4 extr, Cranial nerves 3-12 intact Assessment And Plan Physician Review Additional Text: Problem List Cellulitis of the left 2nd and 3rd digit - failed outpatient therapy secondary to power tools injury Hypertension Continue antibiotics, status post debridement on 02/14 Dr. Geller is planning another surgery on Monday 02/19. continue home meds, PRN pain medications
[2021-02-17] MEDS: CEFAZOLIN 500 MG in NA CHLORIDE 0.9% 50 ML IV SCH ×4 (05:33→23:24)
[2021-02-17] MEDS: HYDROCODONE/APAP 7.5/325 MG TAB PO PRN ×2 (11:04→23:26)
[2021-02-17] MEDS: MEPERIDINE HCL 25 MG/ML SYR IM PRN (13:29)
--- NOTE | 2021-02-17 18:46 | P.PN ---
Subjective Date of Service: 02/17/21 Primary Care Provider: dr. Monk Chief Complaint: Cellulitis left hand Patient has no complain. Physical Examination - Vital Signs Temperature: 99.4 F Blood Pressure: 158/70 Pulse: 64 Respirations: 18 Pulse Ox (%): 96 - Physical Exam General: Alert, In no apparent distress Neck: JVD not distended Respiratory: Clear to auscultation bilaterally, Normal air movement Cardiovascular: No edema, Regular rate/rhythm, Normal S1 S2 Gastrointestinal: Soft and benign, Non-distended Musculoskeletal: Other (Dressed left index finger) Integumentary: No rashes Neurological: Normal strength at 5/5 x4 extr Assessment And Plan Physician Review Additional Text: Problem List Cellulitis of the left 2nd and 3rd digit - failed outpatient therapy secondary to power tools injury Hypertension Continue antibiotics, status post debridement on 02/16 Dr. Geller is planning another surgery on Monday 02/19. continue home meds, PRN pain medications
--- NOTE | 2021-02-17 18:51 | PN ---
He is doing well. We discussed things again, our planning and taking back surgery, probably on y. We will do nerve and artery repairs and possibly direct tendon repair or do tendon reconstruction . CELINA/MYRA Voice ID: [id number] Report ID: [id number]
[2021-02-18] MEDS: MEPERIDINE HCL 25 MG/ML SYR IM PRN ×2 (05:06→22:03)
[2021-02-18] MEDS: CEFAZOLIN 500 MG in NA CHLORIDE 0.9% 50 ML IV SCH ×4 (05:07→23:47)
--- NOTE | 2021-02-18 12:13 | PN ---
The patient is getting dressing changes. The wounds are improving. Planned surgery on Monday. He will be n.p.o. at midnight Monday. We have told that one direct tendon repair one of them two-stage tendon reconstructions surgery. CELINA/MYRA Voice ID: [id number] Report ID: [id number] HIWOT
--- NOTE | 2021-02-18 16:49 | P.PN ---
Subjective Date of Service: 02/18/21 Primary Care Provider: dr. Monk Chief Complaint: Cellulitis left hand Patient has no complain. Physical Examination - Vital Signs Temperature: 99.8 F Blood Pressure: 163/68 Pulse: 84 Respirations: 20 Pulse Ox (%): 94 - Physical Exam General: Alert, In no apparent distress Respiratory: Clear to auscultation bilaterally, Normal air movement Cardiovascular: No edema, Regular rate/rhythm, Normal S1 S2 Gastrointestinal: Soft and benign, Non-distended, No tenderness Musculoskeletal: No swelling, Other (Dressed left index finger wound) Neurological: Normal strength at 5/5 x4 extr Assessment And Plan Physician Review Additional Text: Problem List Cellulitis of the left 2nd and 3rd digit - failed outpatient therapy secondary to power tools injury Hypertension Continue antibiotics, status post debridement on 02/16 Dr. Geller is planning another surgery on Thursday 02/22. continue home meds, PRN pain medications. Continue antibiotics
[2021-02-18] MEDS: HYDROCODONE/APAP 7.5/325 MG TAB PO PRN (23:47)
[2021-02-19] MEDS: CEFAZOLIN 500 MG in NA CHLORIDE 0.9% 50 ML IV SCH ×4 (05:39→23:54)
[2021-02-19] MEDS: HYDROCODONE/APAP 7.5/325 MG TAB PO PRN ×3 (05:39→18:56)
--- NOTE | 2021-02-19 12:10 | P.PN ---
Subjective Date of Service: 02/19/21 Primary Care Provider: dr. Monk Chief Complaint: Cellulitis left hand Patient has no complain. Physical Examination - Vital Signs Temperature: 97.6 F Blood Pressure: 163/77 Pulse: 60 Respirations: 16 Pulse Ox (%): 96 - Physical Exam General: Alert, In no apparent distress Respiratory: Clear to auscultation bilaterally, Normal air movement Cardiovascular: No edema, Regular rate/rhythm, Normal S1 S2 Gastrointestinal: Soft and benign, Non-distended Musculoskeletal: No swelling - Studies Microbiology Data (last 24 hrs): 02/13/21 20:55 Blood - Blood Aerobic Blood Culture - Final No growth in 5 days. 02/13/21 20:55 Blood - Blood Anaerobic Blood Culture - Final No growth in 5 days. 02/13/21 20:26 Blood - Blood Aerobic Blood Culture - Final No growth in 5 days. 02/13/21 20:26 Blood - Blood Anaerobic Blood Culture - Final No growth in 5 days. Assessment And Plan Physician Review Additional Text: Problem List Cellulitis of the left 2nd and 3rd digit - failed outpatient therapy secondary to power tools injury Hypertension Continue antibiotics, status post debridement on 02/16 Dr. Geller is planning another surgery on Thursday 02/22 continue home meds, PRN pain medications Continue antibiotics.
[2021-02-19] MEDS: CODEINE 30MG/APAP 300MG TAB PO PRN (23:54)
[2021-02-20] MEDS: CEFAZOLIN 500 MG in NA CHLORIDE 0.9% 50 ML IV SCH ×3 (05:25→17:31)
[2021-02-20] MEDS: CODEINE 30MG/APAP 300MG TAB PO PRN (06:03)
[2021-02-20 06:12] LABS: Absolute Lymphocytes (CBC) 2.1 K/uL (0.7-4.9); Basophils % 0.9 % (0-1.3); Hematocrit 34.7 % (39.6-49.0); Lymphocytes % 25.1 % (15.3-44.8); MPV 9.1 fL (7.6-11.3); RBC Red Blood Cell Count 4.01 M/uL (4.33-5.43)
[2021-02-20 06:18] LABS: BUN Blood Urea Nitrogen 21 mg/dL (7-18); Bicarbonate 30 mmol/L (21-32); Glucose Level 168 mg/dL (74-106); Potassium 3.5 mmol/L (3.5-5.1); Sodium Level 141 mmol/L (136-145)
[2021-02-20] MEDS ORDERED: POTASSIUM 25 MEQ EFFERV TAB PO ONE (09:00)
[2021-02-20] MEDS ORDERED: CODEINE 30MG/APAP 300MG TAB PO PRN (15:40)
[2021-02-20] MEDS ORDERED: MEPERIDINE HCL 25 MG/ML SYR IM PRN (15:41)
[2021-02-20] MEDS: HYDROCODONE/APAP 7.5/325 MG TAB PO PRN (16:47)
[2021-02-21] MEDS: CEFAZOLIN 500 MG in NA CHLORIDE 0.9% 50 ML IV SCH ×5 (00:28→23:03)
[2021-02-21] MEDS: HYDROCODONE/APAP 7.5/325 MG TAB PO PRN ×3 (02:09→22:21)
[2021-02-21 06:08] LABS: BUN Blood Urea Nitrogen 22 mg/dL (7-18); Bicarbonate 29 mmol/L (21-32); Glucose Level 97 mg/dL (74-106); Potassium 3.8 mmol/L (3.5-5.1); Sodium Level 139 mmol/L (136-145)
[2021-02-21] MEDS ORDERED: POTASSIUM 25 MEQ EFFERV TAB PO ONE (09:00)
--- NOTE | 2021-02-21 10:34 | P.PN ---
Subjective Date of Service: 02/21/21 Primary Care Provider: dr. Monk Chief Complaint: Cellulitis left hand Patient has no complain. He states his pain is under control. Physical Examination - Vital Signs Temperature: 98.4 F Blood Pressure: 151/69 Pulse: 70 Respirations: 20 Pulse Ox (%): 97 - Physical Exam General: Alert, In no apparent distress Respiratory: Clear to auscultation bilaterally, Normal air movement Cardiovascular: Regular rate/rhythm, Normal S1 S2 Gastrointestinal: Normal bowel sounds, Soft and benign, Non-distended Assessment And Plan Physician Review Additional Text: Problem List Cellulitis of the left 2nd and 3rd digit - failed outpatient therapy secondary to power tools injury Hypertension Continue antibiotics, status post debridement on 02/16 Dr. Geller is planning another surgery tomorrow. continue home meds, PRN pain medications. Continue antibiotics NPO post midnight.
[2021-02-22] MEDS: CEFAZOLIN 500 MG in NA CHLORIDE 0.9% 50 ML IV SCH ×2 (06:18→12:51)
[2021-02-22 06:26] LABS: BUN Blood Urea Nitrogen 24 mg/dL (7-18); Bicarbonate 30 mmol/L (21-32); Glucose Level 102 mg/dL (74-106); Potassium 3.9 mmol/L (3.5-5.1); Sodium Level 138 mmol/L (136-145)
[2021-02-22] MEDS ORDERED: KCL 20 MEQ/100 mL IVPB 20 MEQ/100 ML BAG IV SCH (08:00)
[2021-02-22] MEDS ORDERED: FENTANYL CITR 100 MCG/2 ML ONE (08:35)
[2021-02-22] MEDS ORDERED: dexAMETHasone 10 MG/ML VIAL ONE (08:35)
[2021-02-22] MEDS ORDERED: KETOROLAC 30 MG/ML INJ ONE (08:35)
[2021-02-22] MEDS ORDERED: propofoL 200 MG/20 ML VIAL IV ONE (08:35)
[2021-02-22] MEDS ORDERED: MIDAZOLAM HCL 2 MG/2 ML INJ ONE (08:35)
[2021-02-22] MEDS ORDERED: LIDOCAINE 1% MPF 5 ML VIAL ONE (08:36)
[2021-02-22] MEDS ORDERED: Ringers Lactate 1,000 ML IV ONE (09:10)
[2021-02-22] MEDS ORDERED: EPHEDRINE SULF 50 MG/ML VIAL ONE (10:28)
--- NOTE | 2021-02-22 11:10 | P.PN ---
Subjective Date of Service: 02/22/21 Primary Care Provider: dr. Monk Chief Complaint: Cellulitis left hand Patient has no complain. He is scheduled for another left hand surgery today. Physical Examination - Vital Signs Temperature: 97.8 F Blood Pressure: 150/71 Pulse: 65 Respirations: 18 Pulse Ox (%): 97 - Physical Exam General: Alert, In no apparent distress Respiratory: Clear to auscultation bilaterally, Normal air movement Cardiovascular: No edema Gastrointestinal: Soft and benign, Non-distended Musculoskeletal: Other (Left hand in dressing) Neurological: Normal strength at 5/5 x4 extr Assessment And Plan Physician Review Additional Text: Problem List Cellulitis of the left 2nd and 3rd digit - failed outpatient therapy secondary to power tools injury Hypertension Continue antibiotics. continue home meds, PRN pain medications. Deep tissue wound culture grew Staph aureus sensitive to cefazolin. Continue antibiotics through surgeries.
[2021-02-22 12:32] VITALS: O2SAT 98
[2021-02-22] MEDS ORDERED: POTASSIUM CL SA 10 MEQ TAB PO ONE (13:00)
--- NOTE | 2021-02-22 17:27 | P.DS ---
Admission Date: 02/13/21 Discharge Date: 02/22/21 Primary Care Provider: dr. Monk Disposition: ROUTINE DISCHARGE Discharge Condition: FAIR Reason for Admission: Cellulitis left hand Consultations: Hand Surgeon-Dr. Geller - Problems (1) Open wound of left hand Current Visit: Yes Status: Acute (2) Wound infection Current Visit: Yes Status: Acute Brief History of Present Illness: 60-year-old man with a medical history of hypertension presented to the emergency department to be evaluated for an infected left hand wound. Patient sustained a left hand laceration from a power saw. He was in the emergency department on 02/07/2021 and had a wound irrigated and sutured. Patient afterwards experience more pain and swelling. He saw his PCP who prescribed him Bactrim and Augmentin for infection. He later came back to the emergency department again where his hand was noted to be significantly swollen and erythematous especially the 2nd and 3rd digits. The patient was given IV antibiotics in the ED, hand surgeon was contacted and patient admitted for further management. Hospital Course: Patient admitted to the medical floor and treated with aggressive antibiotic therapy. He was seen by Dr. Geller who performed irrigation and debridement. Deep tissue wound culture grew Staph aureus sensitive to cefazolin, tetracycline and fluoroquinolones. Patient was treated with cefazolin and received about 9 days of treatment. He underwent multiple hand surgeries including tendon repair. Last surgery during the hospital stay was today. Dr. Barton cleared patient for discharge. He is prescribed Levaquin to complete at least 14 days of antibiotic treatment. He will follow with Dr. Geller after discharge as discussed. Vital Signs/Physical Exam: Temp Pulse Resp BP Pulse Ox 97.5 F 93 H 18 123/76 96 02/22/21 12:27 02/22/21 12:27 02/22/21 12:27 02/22/21 12:27 02/22/21 12:00 General: Alert, In no apparent distress, Oriented x3 Respiratory: Clear to auscultation bilaterally, Normal air movement Cardiovascular: No edema, Regular rate/rhythm, Normal S1 S2 Gastrointestinal: Soft and benign, Non-distended Integumentary: No rashes Neurological: Normal strength at 5/5 x4 extr Laboratory Data at Discharge: WBC 8.30 K/uL (4.3-10.9) D 02/20/21 05:32 Hgb 11.8 g/dL (13.6-17.9) L 02/20/21 05:32 Hct 34.7 % (39.6-49.0) L 02/20/21 05:32 Plt Count 416 K/uL (152-406) H D 02/20/21 05:32 Sodium 138 mmol/L (136-145) 02/22/21 05:40 Potassium 3.9 mmol/L (3.5-5.1) 02/22/21 05:40 BUN 24 mg/dL (7-18) H 02/22/21 05:40 Creatinine 0.75 mg/dL (0.55-1.3) 02/22/21 05:40 Glucose 102 mg/dL (74-106) 02/22/21 05:40 Total Bilirubin 0.2 mg/dL (0.2-1.0) 02/15/21 04:03 AST 35 U/L (15-37) 02/15/21 04:03 ALT 56 U/L (12-78) 02/15/21 04:03 Alkaline Phosphatase 139 U/L (45-117) H 02/15/21 04:03 Home Medications: hydroCHLOROthiazide [Hydrochlorothiazide*] 12.5 mg PO DAILY 02/14/21 Hydrocodone 7.5/APAP 325 [[place] 7.5/325 mg*] 1 tab PO Q6H PRN #20 tab 02/22/21 levoFLOXacin [Levaquin] 750 mg PO DAILY #5 tab 02/22/21 New Medications: levoFLOXacin [Levaquin] 750 mg PO DAILY #5 tab Hydrocodone 7.5/APAP 325 [[place] 7.5/325 mg*] 1 tab PO Q6H PRN #20 tab PRN Reason: Pain Scale 5-7 (Moderate) Diet: Regular Activity: Ad tay Followup: Mayra Monk DO, DO [Primary Care Provider] - Joey Geller MD [ACTIVE - CAN ADMIT] - Time spent managing pt's care (in minutes): 36
[2021-02-22 18:00] VITALS: BP 148/73; TEMP 98.5
--- NOTE | 2021-02-23 10:40 | OP ---
Surgeon: Joey Geller MD Preoperative Diagnosis: Open wound of left index finger. Postoperative Diagnosis: Open wound of left index finger. Procedure Performed: Debridement of skin, subcutaneous tissue, tendon, microscopic repair of radial ulnar digital nerve and placement of and simple closure of 8 cm wound. Anesthesia: General. Procedure In Detail: After satisfactory induction of general anesthesia, the hand was prepped with Betadine scrub, Betadine paint, dry sterile drapes were applied in the usual manner. Arm was elevated, exsanguinated with an Esmarch, tourniquet inflated to 250 mmHg. Hand was placed on Roto Lock table. Distal extension was made of the laceration over the distal phalanx. Dissection proceeded down to the profundus tendon. The tendon was passed distally, then cut and then the wound was jet lavage irrigated with 3 L of dilute Betadine solution after debriding skin and subcutaneous tissue with forceps and curette. The patient then had hunters winston placed in the sheath and then sewn with 2-0 Prolene. Michael needles were placed through the bone of the distal phalanx. It was tied over a button and foam rubber sponge. Attention was then turned to the nerve and the microscope was brought in the field. Epineural dissection was done with microscissors, curved, and micro forceps and underwent nerve repair with epineural repair of 9-0 Prolene sutures. Both radial and ulnar were done. Upon completion of this, tourniquet was released, electrocautery was used for hemostasis. Wound was closed with 4-0 Prolene vertical mattress, simple sutures, and horizontal mattress. Dressings consisted of Xeroform, 2 inch Farrah. The patient tolerated procedure well and returned to Recovery. CELINA/MODCarina Voice ID: [id number] Report ID: [id number] HIWOT
--- NOTE | 2021-03-30 18:05 | P.PN ---
Subjective Date of Service: 02/20/21 Primary Care Provider: dr. Monk Chief Complaint: Cellulitis left hand Patient has no complain. He is scheduled for another left hand surgery on Monday. Physical Examination - Vital Signs Temperature: 98.5 F Blood Pressure: 148/73 Pulse: 106 Respirations: 16 Pulse Ox (%): 95 - Physical Exam General: Alert, In no apparent distress Neck: JVD not distended Respiratory: Clear to auscultation bilaterally, Normal air movement Cardiovascular: No edema, Regular rate/rhythm, Normal S1 S2 Gastrointestinal: Normal bowel sounds, Soft and benign, Non-distended, No tenderness Integumentary: No rashes Neurological: Normal strength at 5/5 x4 extr Assessment And Plan - Current Problems (Diagnosis) (1) Open wound of left hand Status: Acute (2) Wound infection Status: Acute Physician Review Additional Text: Problem List Cellulitis of the left 2nd and 3rd digit - failed outpatient therapy secondary to power tools injury Hypertension Continue antibiotics. continue home meds, PRN pain medications. Deep tissue wound culture: Staph aureus sensitive to cefazolin. Continue antibiotics.
== END 2021-02-22 18:02 | disposition home or self-care (01) | DRG 581 ==
LOC: ER 18:27 → ERHOLD 22:20 → 2ND 23:34
PROVIDERS: ADMIT Hospitalist; ATTEND Internal Medicine
PROC: 01N50ZZ Release Median Nerve, Open Approach (ICD-10-PCS; 2021-02-14)
PROC: 0JBK0ZZ Excision of Left Hand Subcutaneous Tissue and Fascia, Open Approach (ICD-10-PCS; principal; 2021-02-14 10:00)
PROC: 0LD80ZZ Extraction of Left Hand Tendon, Open Approach (ICD-10-PCS; 2021-02-16)
PROC: 0LQ80ZZ Repair Left Hand Tendon, Open Approach (ICD-10-PCS; 2021-02-16)
PROC: 0LD80ZZ Extraction of Left Hand Tendon, Open Approach (ICD-10-PCS; 2021-02-22)
DX: S61.211A Laceration without foreign body of left index finger without damage to nail, initial encounter (principal); I10 Essential (primary) hypertension; F17.210 Nicotine dependence, cigarettes, uncomplicated; L03.012 Cellulitis of left finger; S61.201A Unspecified open wound of left index finger without damage to nail, initial encounter; Z79.899 Other long term (current) drug therapy; Z20.822 Contact with and (suspected) exposure to COVID-19
CPT/HCPCS: 36415; 71045; 80048; 80053; 81003; 83605; 84132; 84145; 85025; 87040; 87070; 87075; 87077; 87186; 87205; 93005; 96374; 96375; 99285; J0690; J1100; J1170; J2175; J2250; J2370; J2405; J2704; J3010; J3480; J7030; J7120; U0003

== ENCOUNTER 2021-03-18 07:23 | Day surgery (SDC) | payer BC ==
[2021-03-18 07:49] LABS: Absolute Lymphocytes (CBC) 1.5 K/uL (0.7-4.9); Basophils % 0.5 % (0-1.3); Hematocrit 37.9 % (39.6-49.0); Lymphocytes % 22.9 % (15.3-44.8); MPV 9.3 fL (7.6-11.3); RBC Red Blood Cell Count 4.45 M/uL (4.33-5.43)
[2021-03-18] MEDS ORDERED: Ringers Lactate 1,000 ML IV ONE (08:27)
[2021-03-18] MEDS ORDERED: CEFAZOLIN/SWI 1gm 1 GM/10 ML SYR ONE (08:27)
[2021-03-18] MEDS ORDERED: propofoL 200 MG/20 ML VIAL IV ONE (09:31)
[2021-03-18] MEDS ORDERED: FENTANYL CITR 100 MCG/2 ML ONE (09:31)
[2021-03-18] MEDS ORDERED: LIDOCAINE 1% MPF 5 ML VIAL ONE (09:32)
[2021-03-18] MEDS ORDERED: MIDAZOLAM HCL 2 MG/2 ML INJ ONE (09:32)
[2021-03-18] MEDS ORDERED: ONDANSETRON 4 MG/2 ML VIAL ONE ×2 (09:55→10:55)
[2021-03-18] MEDS ORDERED: KETOROLAC 30 MG/ML INJ ONE (10:04)
[2021-03-18] MEDS ORDERED: EPHEDRINE SULF 50 MG/ML VIAL ONE (10:06)
[2021-03-18] MEDS ORDERED: NS 0.9% VIAL 10 ML ONE (10:06)
[2021-03-18] MEDS ORDERED: HYDROMORPHONE HCL 1 MG/ML INJ ONE (10:55)
[2021-03-18] MEDS ORDERED: HYDROCODONE/APAP 7.5/325 MG TAB ONE (11:28)
[2021-03-18 13:46] VITALS: BP 140/71; TEMP 97.5; O2SAT 96
--- NOTE | 2021-03-18 17:39 | OP ---
Surgeon: Joey Geller MD Preoperative Diagnosis: Infected left index finger. Postoperative Diagnosis: Infected left index finger. Procedure Performed: Debridement of skin and subcutaneous tissue and tendon. Anesthesia: General. Procedure In Detail: After satisfactory general anesthesia, left arm was prepped with Betadine scrub and paint. Dry sterile drapes were applied in usual manner. Arm was elevated. Tourniquet was inflated to 250 mmHg. Hand was placed on a roll lock table. The previous incision was opened. Pus was encountered. Cultures were taken and necrotic tendon and necrotic tissue were excised. The wound was jet lavaged and irrigated with 3 L of dilute Betadine solution. Tourniquet was released. Electrocautery was used for hemostasis. Wound was packed with Betadine-soaked half-inch Nu Gauze, 2-inch Farrah, and Kerlix. The patient tolerated the procedure well and returned to recovery room. CELINA/MYRA Voice ID: [id number] Report ID: [id number] HIWOT
== END 2021-03-18 11:40 | disposition home or self-care (01) ==
LOC: OR 07:23
PROVIDERS: ATTEND Specialist
PROC: 0JBJ0ZZ Excision of Right Hand Subcutaneous Tissue and Fascia, Open Approach (ICD-10-PCS; 2021-03-18)
PROC: 0LB70ZZ Excision of Right Hand Tendon, Open Approach (ICD-10-PCS; principal; 2021-03-18 09:00)
DX: L08.9 Local infection of the skin and subcutaneous tissue, unspecified (principal); Z20.822 Contact with and (suspected) exposure to COVID-19
CPT/HCPCS: 11043; 87070; 85025; 36415; 87205; 87075; 87077; 87186; U0003; J2704; J2250; J3010; J1170; J0690; J7120; J2405 ×2

== ENCOUNTER 2024-05-19 18:46 | Observation (INO) | payer OTHER ==
--- OUTSIDE RECORDS SUMMARY | 2024-05-19 18:49 | XMS REPORT | Continuity of Care Document ---
Author Name Unknown Address [address] [facility] [address] [place] [address] [facility] thconnect Address [address] [facility] [place] [address] Care Team Providers Care Fund Accountant Name Role Phone CARLYLE REECEHILDA Primary Care Physician Unavailab JAMES Noland NATASHA Attending Clinician Unava ilable [id number] Attending Clinician Unavailable MARIA ELENA MORA Attending Clinician UnavailSera Ragsdale S Attending Clinician [phone] SERA HENRY Attending Clinician Unavailable CHAD BENAVIDES Attending Clinician Unavailable Maria Elena Mora MD Attending Clinician [phone] Doctor Unassigned, [place] Attending Clinician U shantel Saunders UPPER CUTTER OUT, Ana Sanders Attending Clinician Unavail able Lola PT, Francesca Acevedo Attending Clinician Unavail able Chip NORTH, Adonis Healy Attending Clinician Unavaila micha Lang PT, Luly Attending Clinician Un available Shon PTAriadne Attending Clinician Unavailab ibrahima Pob, Adc Lab Main Attending Clinician Unavailgenaro pérez Only, Adc Test Attending Clinician Unavailable Jax Canada CRNA Attending Clinician + [phone] Cj Valdivia MD Attending Clinician + [phone] RAMY LONDON Attending Clinician Unavailable JAMES MEJIA NATASHA Admitting Clinician Unava ilable [id number] Admitting Clinician Unavailable MARIA ELENA MORA Admitting Clinician UnavailMaria Elena Hays MD Admitting Clinician [phone] Payers Payer Name Policy Type Policy Number Effective Date Expirati on Date Source [facility] [id number] [facility] [id number] 2015 00:00:00 [facility]Doc [facility] [id number] 2022 00:00:00 Problems Condition Name Condition Details Condition Category Status Onset Date Resolution Date Last Treatment Date Treating Clinician Comments Source Obesity (BMI 30-39.9) Obesity (BMI 30-39.9) Disease Active 2020-11 00:00: 00 [facility] Primary osteoarthr itis of right knee Primary osteoarthr itis of right knee Disease Active 2020-11 00:00: 00 Overview: Formattin g of this note might be different from the original. 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 Added automatic ally from request for surgery [id number] [facility] Morbid obesity with body mass index of 40.0-49.9 Morbid obesity with body mass index of 40.0-49.9 Disease Active 2016-11 00:00: 00 [facility] Primary osteoarthr itis of left knee Primary osteoarthr itis of left knee Problem Active [facility] Pain, joint, knee, left Pain, joint, knee, left Problem Active [facility] Primary osteoarthr itis of right knee Primary osteoarthr itis of right knee Problem Active [facility] Pain, joint, knee, right Pain, joint, knee, right Problem Active [facility] Bilateral primary osteoarthr itis of knee Bilateral primary osteoarthr itis of knee Problem Active [facility] Narcolepsy without cataplexy Narcolepsy without cataplexy Problem Active [facility] Body mass index (BMI) of 40.0-44.9 in adult Body mass index (BMI) of 40.0-44.9 in adult Problem Active [facility] Morbid (severe) obesity due to excess calories Morbid (severe) obesity due to excess calories Problem Active [facility] Right sciatic nerve pain Right sciatic nerve pain Problem Active [facility] Allergies, Adverse Reactions, Alerts Allergy Name Allergy Type Status Severity Reaction(s) Onset Date Inactive Date Treating Clinician Comments Source NO KNOWN ALLERGIE S Drug Class Active [facility] Social History Social Habit Start Date Stop Date Quantity Comments Source History of tobacco use Cigarette Smoker [facility] History SDOH Alcohol Frequency [facility] History SDOH Alcohol Std Drinks [facility] History SDOH Alcohol Binge [facility] Exposure to SARS-CoV-2 (event) 2022-09-09 00:00:00 2022-09-19 14:35:00 Not sure [facility] Cigarettes smoked current (pack per day) - Reported 2022-09-19 00:00:00 2022-09-19 00:00:00 [facility] Tobacco use and exposure 2022-09-19 00:00:00 2022-09-19 00:00:00 Smokeless tobacco non-user [facility] Alcohol intake 2022-09-19 00:00:00 2022-09-19 00:00:00 Current drinker of alcohol (finding) [facility] Alcohol Comment 2017-11-14 00:00:00 2017-11-14 00:00:00 Approx. 1 beer daily [facility] Sex Assigned At 1960 00:00:00 1960 00:00:00 [facility] Smoking Status Start Date Stop Date Source Smokes tobacco daily 2022-09-19 00:00:00 [facility] Medications Ordered Medication Name Filled Medication Name Start Date Stop Date Current Medication? Ordering Clinician Indication Dosage Frequency Signature (SIG) Comments Components Source lisinopril 20 mg tablet 2020-11 14:58: 00 Yes 20mg Take 20 mg by mouth 2 (two) times daily. [facility] multivitami n, tx-minerals (COMPLETE MULTIVITAMI N) tablet 2020-11 14:58: 00 Yes 1{tbl} Take 1 tablet by mouth daily. [facility] acetaminoph en-codeine (TYLENOL-CO DEINE #3) 300-30 mg tablet 2020-11- 00:00: 00 Yes [id number] 2{tbl} Take 2 tablets by mouth every 4 (four) hours as needed for Pain (scale 4-6) or Pain (scale 7-10). Indication s: acute pain [facility] lisinopriL- hydrochloro thiazide 20-12.5 mg per tablet 2019-11 0-05 00:00: 00 Yes 1{tbl} Take 1 tablet by mouth 2 (two) times daily. [facility] gabapentin 600 mg tablet 2019-11 00:00: 00 Yes TAKE 1 TABLET BY MOUTH THREE TIMES DAILY . DO NOT EXCEED 6 PER 24 HOURS [facility] Tramadol HCl Tramadol HCl 06-03 00:00: 00 07-03 00:00 :00 No Gonzalo Jesus as directed [facility] Lisinopril- Hydrochloro thiazide Lisinopril- Hydrochloro thiazide Yes Gonzalo Jesus not defined [facility] Acetaminoph en-Codeine #3 Acetaminoph en-Codeine #3 Yes Gonzalo Jesus not defined [facility] ibuprofen ibuprofen Yes Gonzalo Jesus not defined [facility] Shingrix Shingrix Yes Gonzalo Jesus not defined [facility] Twinrix Twinrix Yes Gonzalo Jesus not defined [facility] Penicillin V Potassium Penicillin V Potassium Yes Gonzalo Jesus not defined [facility] Vital Signs Vital Name Observation Time Observation Value Comments S ource Body height 2022-09-19 20:14:00 162.6 cm [facility] Body weight 2022-09-19 20:14:00 102.059 kg [facility] BMI 2022-09-19 20:14:00 38.62 kg/m2 [facility] Systolic blood pressure 2022-01-26 18:18:00 149 mm[Hg] [facility] Diastolic blood pressure 2022-01-26 18:18:00 66 mm[Hg] [place] [facility] Heart rate 2022-01-26 18:18:00 79 /min [facility] Body height 2022-01-26 18:18:00 162.6 cm [facility] Body weight 2022-01-26 18:18:00 102.059 kg [facility] BMI 2022-01-26 18:18:00 38.62 kg/m2 [facility] Oxygen saturation in Arterial blood by Pulse oximetry 2022-01-26 18:18:00 97 /min [facility] Procedures Procedure Date / Time Performed Performing Clinicia n Source MEDICAL RELEASE/CLEARANCE FORMS 2022-01-26 06:01:00 Doctor Unassigned, [place] [facility] Encounters Start Date/Time End Date/Time Encounter Type Admission Type Attending [facility] Care Facility Care Department Encounter ID Source 2021-12-23 11:06:04 Outpatient 3 [place] [id number] 2021-12-23 11:05:44 Outpatient 3 [id number] [facility] REF [id number] [facility] [place] 2021-09-25 06:29:22 Inpatient MARIA ELENA DASH [facility] [id number] [facility] 2022-09-19 15:50:00 2022-09-19 23:59:00 Outpatient MARIA ELENA DASH [facility] [id number] [facility] 2022-09-19 15:15:00 2022-09-19 15:30:00 Office Visit Sera Henry [facility] 1.2.840.114 350.1.13.10 4.2.7.2.686 [id number] [facility] 2022-06-16 17:00:00 2022-06-16 17:00:00 Outpatient CHAD INGRAM [facility] [id number] [facility] 2022-01-26 13:15:00 2022-01-26 13:15:00 Outpatient R MARIA ELENA MORA [facility] [id number] [facility] 2022-01-26 13:15:00 2022-01-26 13:15:00 [facility] 1.84.114 350.1.13.10 4.2.7.2.686 [id number] [facility] 2022-01-26 13:15:00 2022-01-26 13:06:07 Outpatient R MARIA ELENA MORA [facility] [id number] [facility] 2022-01-26 00:00:00 2022-01-26 00:00:00 Orders Only Doctor Unassigned, [place] [facility] 1..114 350.1.13.10 4.2.7.2.686 [id number] [facility] 2021-12-17 00:00:00 2021-12-17 00:00:00 Orders Only Doctor Unassigned, [place] [facility] 1..114 350.1.13.10 4.2.7.2.686 [id number] [facility] 2021-12-16 11:20:00 2021-12-16 13:11:48 Outpatient R MARIA ELENA MORA [facility] [id number] [facility] 2021-12-16 11:20:00 2021-12-16 13:11:48 Outpatient R MARIA ELENA MORA [facility] [id number] [facility] 2021-12-16 11:20:00 2021-12-16 13:11:48 Ancillary Visit Ana Saunders [facility] 1.84.114 350.1.13.10 4.2.7.2.686 [id number] [facility] 2021-12-14 11:20:00 2021-12-14 12:00:00 Ancillary Visit Ana Saunders Craig L [facility] BU[facility] 1.2.840.114 350.1.13.10 4.2.7.2.686 [id number] [facility] 2021-12-10 10:00:00 2021-12-10 10:40:00 Ancillary Visit Ana Saunders Craig L [facility] 1.2.840.114 350.1.13.10 4.2.7.2.686 [id number] [facility] 2021-12-08 10:00:00 2021-12-08 10:40:00 Ancillary Visit Francesca Davila Craig L [facility] 1.2.840.114 350.1.13.10 4.2.7.2.686 [id number] [facility] 2021-12-06 08:40:00 2021-12-06 09:20:00 Ancillary Visit Adonis Saunders Craig L [facility] 1.2.840.114 350.1.13.10 4.2.7.2.686 [id number] [facility] 2021-12-02 09:20:00 2021-12-02 10:00:00 Ancillary Visit Adonis Saunders Craig L [facility] 1.2.840.114 350.1.13.10 4.2.7.2.686 [id number] [facility] 2021-12-02 09:20:00 2021-12-02 09:20:00 Outpatient R MARIA ELENA MORA [facility] [id number] [facility] 2021-12-02 00:00:00 2021-12-02 00:00:00 Telephone Maria Elena Mora Carina [facility] 1.2.114 350.1.13.10 4.2.7.2.686 [id number] [facility] 2021-11-30 10:00:00 2021-11-30 11:19:00 Ancillary Visit Adonis Saunders Craig L [facility] 1.2840.114 350.1.13.10 4.2.7.2.686 [id number] [facility] 2021-11-26 08:20:00 2021-11-26 09:00:00 [facility] 1.2.114 350.1.13.10 4.2.7.2.686 [id number] [facility] 2021-11-26 08:20:00 2021-11-26 08:20:00 Outpatient R MARIA ELENA MORA [facility] [id number] [facility] 2021-11-24 10:00:00 2021-11-24 10:40:00 Ancillary Visit Adonis Saunders Craig [facility] BU[facility] 1..114 350.1.13.10 4.2.7.2.686 [id number] [facility] 2021-11-24 00:00:00 2021-11-24 00:00:00 Letter (Out) Doctor Unassigned, [place] [facility] 1.2.114 350.1.13.10 4.2.7.2.686 [id number] [facility] 2021-11-22 16:15:00 2021-11-22 17:13:51 Office Visit Maria [facility] 1.2840.114 350.1.13.10 4.2.7.2.686 [id number] [facility] 2021-11-22 16:15:00 2021-11-22 17:13:51 Outpatient R GIOVANNY MORAIG [facility] [id number] [facility] 2021-11-22 16:15:00 2021-11-22 16:15:00 Outpatient R MORGAN MARIA ELENA [facility] [id number] [facility] 2021-11-22 13:45:00 2021-11-22 13:45:00 Outpatient R SERA HENRY [facility] [id number] [facility] 2021-11-22 11:20:00 2021-11-22 12:00:00 Ancillary Visit Adonis Saunders Craig [facility] 1.2.840.114 350.1.13.10 4.2.7.2.686 [id number] [facility] 2021-11-18 09:20:00 2021-11-18 10:00:00 Ancillary Visit Adonis Saunders Craig [facility] BU[facility] 1.2.840.114 350.1.13.10 4.2.7.2.686 [id number] [facility] 2021-11-17 10:00:00 2021-11-17 10:40:00 Ancillary Visit Adonis Saunders Craig [facility] BU[facility] 1.2.840.114 350.1.13.10 4.2.7.2.686 [id number] [facility] 2021-11-15 10:00:00 2021-11-15 10:40:00 Ancillary Visit Adonis Saunders Craig [facility] 1.2.840.114 350.1.13.10 4.2.7.2.686 [id number] [facility] 2021-11-11 09:00:00 2021-11-11 09:40:00 Ancillary Visit Luly Emmanuel Craig L [facility] NAL BUILDING 1..114 350.1.13.10 4.2.7.2.686 [id number] [facility] 2021-11-09 14:04:53 2021-11-09 16:43:24 Ancillary Visit Menendez Ariadne Maria Elena Duarte [facility] BU[facility] 1..114 350.1.13.10 4.2.7.2.686 [id number] [facility] 2021-11-08 06:21:00 2021-11-08 14:32:00 Outpatient R MARIA ELENA MORA [facility] [id number] [facility] 2021-11-08 06:21:00 2021-11-08 14:32:00 Hospital Encounter Maria Elena Mora [facility] 1..114 350.1.13.10 4.2.7.2.686 [id number] [facility] 2021-11-08 06:21:00 2021-11-08 14:32:00 Outpatient R MARIA ELENA MORA [facility] [id number] [facility] 2021-11-08 07:30:00 2021-11-08 09:48:00 Surgery Maria Elena Mora [facility] 1..114 350.1.13.10 4.2.7.2.686 [id number] [facility] 2021-11-08 00:00:00 2021-11-08 00:00:00 Telephone Maria Elena Mora [facility] 1..114 350.1.13.10 4.2.7.2.686 [id number] [facility] 2021-11-08 00:00:00 2021-11-08 00:00:00 Orders Only Doctor Unassigned, [place] [facility] 1.84.114 350.1.13.10 4.2.7.2.686 [id number] [facility] 2021-11-05 08:43:02 2021-11-05 23:59:00 Hospital Encounter Maria Elena Mora [facility] 1..114 350.1.13.10 4.2.7.2.686 [id number] [facility] 2021-11-05 08:42:46 2021-11-05 08:57:46 Small Products I Assembler Visit Pob, Adc Lab Main Maria Elena Mora [facility] PROFESSIO NAL BUILDING 1.84.114 350.1.13.10 4.2.7.2.686 [id number] [facility] 2021-11-05 08:40:03 2021-11-05 08:55:03 Laboratory Only Only, Adc Test Maria Elena Mora [facility] 1.284.114 350.1.13.10 4.2.7.2.686 [id number] [facility] 2021-11-05 08:30:00 2021-11-05 08:30:00 Outpatient R MARIA ELENA MORA [facility] [id number] [facility] 2021-11-04 13:00:00 2021-11-04 16:50:15 Outpatient R MARIA ELENA MORA [facility] [id number] [facility] 2021-10-19 00:00:00 2021-10-19 00:00:00 Prep For Surgery MoraMaria Elena collado Carina [facility] 1.84.114 350.1.13.10 4.2.7.2.686 [id number] [facility] 2021-10-18 13:30:00 2021-10-18 14:04:28 Outpatient R MORGAN MARIA ELENA [facility] [id number] [facility] 2021-10-18 13:30:00 2021-10-18 13:30:00 Outpatient R MARIA ELENA MORA [facility] [id number] [facility] 2021-10-18 12:37:18 2021-10-18 12:52:18 [facility] 1..840.114 350.1.13.10 4.2.7.2.686 [id number] [facility] 2021-09-17 00:00:00 2021-09-17 00:00:00 Telephone Maria Elena Mora [facility] Medical Office Building 1..840.114 350.1.13.10 4.2.7.2.686 [id number] [facility] 2021-09-10 00:00:00 2021-09-10 00:00:00 Telephone Maria Elena Mora [facility] Medical Office Building 1.840.114 350.1.13.10 4.2.7.2.686 [id number] [facility] 2021-09-10 00:00:00 2021-09-10 00:00:00 Orders Only Doctor Unassigned, [place] [facility] 1.2840.114 350.1.13.10 4.2.7.2.686 [id number] [facility] 2021-08-27 10:30:00 2021-08-27 10:30:00 Outpatient R MARIA ELENA MORA [facility] [id number] [facility] 2021-08-27 09:47:49 2021-08-27 10:18:39 Office Visit Maria Elena Mora [facility] 1.2.840.114 350.1.13.10 4.2.7.2.686 [id number] [facility] 2021-07-29 00:00:00 2021-07-29 00:00:00 Letter (Out) Maria Elena Mora [facility] 1.2.840.114 350.1.13.10 4.2.7.2.686 [id number] [facility] 2021-07-16 10:45:00 2021-07-16 10:45:00 Outpatient R ELAINE SERA [facility] [id number] [facility] 2020-12-08 09:18:23 2020-12-08 09:33:23 [facility] [place] 1.2.840.114 350.1.13.10 4.2.7.2.686 [id number] [facility] 2020-12-08 09:18:23 2020-12-08 09:33:23 Office Visit Elaine Sera [facility] [place] 1.2.840.114 350.1.13.10 4.2.7.2.686 [id number] 2020-12-08 09:30:00 2020-12-08 09:30:00 Outpatient R SERA HENRY [facility] [id number] [facility] 2020-12-08 00:00:00 2020-12-08 00:00:00 Letter (Out) Elaine [facility] [place] 1.2.840.114 350.1.13.10 4.2.7.2.686 [id number] [facility] 2020-12-08 00:00:00 2020-12-08 00:00:00 Letter (Out) Sera Henry [facility] Surgical Specialti clotilde Reynaga 1.2.840.114 350.1.13.10 4.2.7.2.686 [id number] 2020-11-10 09:19:01 2020-11-10 23:59:00 Hospital Encounter Maria Elena Mora [facility] 1.2.840.114 350.1.13.10 4.2.7.2.686 [id number] [facility] 2020-11-10 09:58:29 2020-11-10 10:13:29 Office Visit Sera Henry [facility] Surgical Special clotilde Reynaga 1.2.840.114 350.1.13.10 4.2.7.2.686 [id number] [facility] 2020-11-10 00:00:00 2020-11-10 00:00:00 Outpatient R MARIA ELENA MORA [facility] [id number] [facility] 2020-11-10 00:00:00 2020-11-10 00:00:00 Telephone Maria Elena Mora [facility] Surgical Special clotilde [place] 1.2.840.114 350.1.13.10 4.2.7.2.686 [id number] [facility] 2020-11-02 00:00:00 2020-11-02 00:00:00 Telephone Maria Elena Mora [facility] Professio [facility] 1.2.840.114 350.1.13.10 4.2.7.2.686 [id number] [facility] 2020-10-26 06:10:00 2020-10-28 16:14:00 Hospital Encounter Maria Elena Mora [facility] 1.2.840.114 350.1.13.10 4.2.7.2.686 [id number] [facility] 2020-10-26 07:39:00 2020-10-26 09:34:00 Anesthesia Jax [place] Jeffrey S [facility] Surgical [place] 1.114 350.1.13.10 4.2.7.2.686 [id number] [facility] 2020-10-26 00:00:00 2020-10-26 00:00:00 Orders Only Doctor Unassigned, [place] [facility] 1.114 350.1.13.10 4.2.7.2.686 [id number] [facility] 2020-10-26 00:00:00 2020-10-26 00:00:00 Prep For Surgery Maria Elena Mora [facility] 1.114 350.1.13.10 4.2.7.2.686 [id number] [facility] 2020-10-21 14:00:00 2020-10-21 14:00:00 Outpatient R MARIA ELENA MORA [facility] [id number] [facility] 2020-10-21 08:07:16 2020-10-21 08:22:16 Laboratory Only Only, Adc Test Maria Elena Mora [facility] 1.114 350.1.13.10 4.2.7.2.686 [id number] [facility] 2020-10-21 08:05:40 2020-10-21 08:20:40 Small Products I Assembler Visit Pob, Adc Lab Main [facility] 1.114 350.1.13.10 4.2.7.2.686 [id number] [facility] 2020-10-21 08:00:00 2020-10-21 08:05:00 Hospital Encounter Maria Elena Mora [facility] 1.2.840.114 350.1.13.10 4.2.7.2.686 [id number] [facility] 2020-10-20 15:00:00 2020-10-20 15:00:00 Outpatient Karen RAMY LONDON [facility] [id number] [facility] 2020-10-20 09:13:25 2020-10-20 10:13:25 Ancillary Visit Adonis Saunders [facility] [place] 1.2840.114 350.1.13.10 4.2.7.2.686 [id number] [facility] 2020-10-20 09:00:00 2020-10-20 09:00:00 Outpatient R MARIA ELENA MORA [facility] [id number] [facility] 2020-10-06 00:00:00 2020-10-06 00:00:00 Orders Only Doctor Unassigned, [place] [facility] 1.2840.114 350.1.13.10 4.2.7.2.686 [id number] [facility] 2020-09-30 00:00:00 2020-09-30 00:00:00 Orders Only Doctor Unassigned, [place] [facility] 1.2840.114 350.1.13.10 4.2.7.2.686 [id number] [facility] 2020-09-29 10:18:09 2020-09-29 23:59:00 Hospital Encounter Maria Elena Mora [facility] [place] 1.840.114 350.1.13.10 4.2.7.2.686 [id number] [facility] 2020-09-29 10:15:00 2020-09-29 10:15:00 Outpatient SERA GRAMAJO [facility] [id number] [facility] 2020-09-29 09:46:45 2020-09-29 10:01:45 Office Visit Sera Henry [facility] Surgical Specialti clotilde Reynaga [id number] [facility] 2020-09-29 00:00:00 2020-09-29 00:00:00 Orders Only Doctor Unassigned, [place] [facility] [id number] [facility] 2020-09-29 00:00:00 2020-09-29 00:00:00 Letter (Out) Sera Henry [facility] Surgical Specialmario Reynaga [id number] [facility] 2019-07-08 15:30:00 2019-07-08 15:30:00 [facility] [id number] [facility] 2019-06-03 09:30:00 2019-06-03 09:30:00 [facility] [id number] [facility] 2018-09-12 08:00:00 2018-09-12 08:00:00 [facility] [id number] [facility]
[2024-05-19 19:23] LABS: Absolute Eosinophils 0.4 K/uL (0-0.5); Absolute Lymphocytes (CBC) 3.3 K/uL (0.7-4.9); Absolute Monocytes 1.1 K/uL (0.1-1.3); Absolute Neutrophil 9.1 K/uL (1.8-8.0); Basophils % 0.2 % (0-1.3); Hematocrit 37.7 % (39.6-49.0); Hemoglobin 12.8 g/dL (13.6-17.9); Lymphocytes % 23.4 % (15.3-44.8); MCH 31.3 pg (27.0-35.0); MCV 92.1 fL (80-100); Monocytes % 7.6 % (3.3-12.3); Neutrophils % 65.8 % (41.7-73.7); Nucleated Red Blood Cells % 0.2 % (0-0); Platelets 309 thou/uL (152-406); Red Cell Distribution Width 14.8 % (12.1-15.2)
--- NOTE | 2024-05-19 19:23 | EDPHYS ---
Physician Documentation [facility] Name: Star Sullivan Age: 63 yrs Sex: Male : 1960 Arrival Date: 05/19/2024 Time: 18:46 Bed 3 Private MD: ED Physician Merlin Waite HPI: 05/19 20:01 This 63 yrs old Male presents to ER via EMS with complaints of Allergic rt Reaction. 20:01 Patient presents to the ED with allergic reaction to bee stings. Patient was stung rt multiple times just prior to arrival. Patient was hypoxic to the 70s, systolic blood pressure was about 70. Patient was put on supplemental O2, sent to the ED for further evaluation. Denies other acute complaints at this time, symptoms are severe in severity, no other aggravating or alleviating factors.. Historical: - Allergies: 19:06 No Known Allergies; ap3 - PMHx: 19:06 Hypertension; Hypertension; ap3 - Immunization history:: Adult Immunizations up to date. - Infectious Disease History:: Denies. - Social history:: Smoking status: Patient denies any tobacco usage or history of. - Family history:: not pertinent. ROS: 20:01 Constitutional: Negative for fever, chills, and weight loss, Cardiovascular: Negative rt for chest pain, palpitations, and edema, Abdomen/GI: Negative for abdominal pain, nausea, vomiting, diarrhea, and constipation, Skin: Negative for injury, rash, and discoloration, Neuro: Negative for headache, weakness, numbness, tingling, and seizure, 20:01 Respiratory: Positive for shortness of breath, wheezing, Exam: 20:01 Constitutional: The patient appears in obvious distress, rt 20:01 ECG was reviewed by the Attending Physician. 20:01 Respiratory: Wheezes with respiratory distress, 20:01 Skin: Innumerable stingers noted.. Vital Signs: 18:48 BP 79 / 41; Pulse 88; Resp 24; Pulse Ox 100% on R/A; Pain 10/10; ap3 19:07 BP 139 / 78; Pulse 84; Resp 17; Pulse Ox 100% on 2 lpm NC; ap3 19:16 BP 150 / 58; Pulse 89; Resp 16 S; Pulse Ox 100% on 2 lpm NC; lg3 20:59 BP 133 / 55; Pulse 67; Resp 19 S; Pulse Ox 100% on 2 lpm NC; lg3 18:48 Pain Scale: Adult ap3 MDM: 18:57 Patient medically screened. rt 20:01 Differential diagnosis: anaphylaxis. Data reviewed: vital signs, nurses notes, lab test rt result(s), EKG. Consideration of Admission/Observation Patient was admitted/placed on observation. Management of patient was discussed with the following: Hospitalist: Agrees to admit. I considered the following discharge prescriptions or medication management in the emergency department Medications were administered in the Emergency Department. See MAR. Care significantly affected by the following chronic conditions: Hypertension. Counseling: I had a detailed discussion with the patient and/or guardian regarding the historical points, exam findings, and any diagnostic results supporting the discharge/admit diagnosis, lab results, the need for further work-up and treatment in the hospital. Response to treatment: the patient's symptoms have markedly improved after treatment. ED course: AVA Oquendo and I removed several dozen stingers from the patient's skin. 05/19 18:57 Order name: Basic Metabolic Panel rt 05/19 18:57 Order name: CBC with Diff rt 05/19 18:57 Order name: Troponin HS rt 05/19 19:34 Order name: Urinalysis w/ reflexes EDMS 05/19 19:34 Order name: CBC with Automated Diff EDMS 05/19 19:34 Order name: CBC with Automated Diff EDMS 05/19 19:34 Order name: Comprehensive Metabolic Panel EDMS 05/19 19:34 Order name: Comprehensive Metabolic Panel EDMS 05/19 18:57 Order name: Cardiac monitoring; Complete Time: 18:58 rt 05/19 18:57 Order name: EKG - Nurse/Tech; Complete Time: 19:34 rt 05/19 18:57 Order name: IV Saline Lock; Complete Time: 18:58 rt 05/19 18:57 Order name: Labs collected and sent; Complete Time: 19:15 rt 05/19 18:57 Order name: O2 Per Protocol; Complete Time: 18:58 rt 05/19 18:57 Order name: O2 Sat Monitoring; Complete Time: 18:58 rt EC:01 Rate is 94 beats/min. Rhythm is regular, Normal Sinus Rhythm with No ectopy. QRS [place] rt is Normal. MT interval is normal. QRS interval is normal. QT interval is normal. No Q waves. T waves are Normal. No ST changes noted. Interpreted by me. Administered Medications: 18:48 Drug: EPINEPHrine IM 1:1,000 0.3 mg IM once Route: IM; Site: right deltoid; ap3 19:22 Follow up: Response: No adverse reaction lg3 19:08 Drug: diphenhydrAMINE IVP 50 mg IVP once Route: IVP; Site: right hand; ap3 19:22 Follow up: Response: No adverse reaction lg3 19:08 Drug: MethylPrednisoLONE IVP 125 mg IVP once Route: IVP; Site: right hand; ap3 19:22 Follow up: Response: No adverse reaction lg3 19:08 Drug: NS 0.9% IV 2000 ml IV at 1 bolus Per protocol; 1000 mL bolus Route: IV; Rate: 1 ap3 bolus; Site: right hand; 21:05 Follow up: IV Status: Completed infusion; IV Intake: 1000ml lg3 Disposition Summary: 05/19/24 19:22 Hospitalization Ordered Notes: Hospitalization Status: Inpatient Admission rt Provider: Juan Dahl rt Location: Intensive Care Unit rt Condition: Critical rt Problem: new rt Symptoms: have improved rt Bed/Room Type: Standard rt Room Assignment: 3-(05/19/24 20:23) up health system Diagnosis - Anaphylactic shock, unspecified, initial encounter rt Forms: - Medication Reconciliation Form rt - SBAR form rt - Leadership Thank You Letter rt Critical care time excluding procedures: 20:01 Critical care time: Bedside Care: 30 minutes, Consultation: 5 minutes. Total time: 35 rt minutes Signatures: Dispatcher [employer] Bridgette Araujo RN RN ap3 Merlin Waite MD MD rt Elidia Dove kmf Jewell Sotelo RN lg3 Corrections: (The following items were deleted from the chart) :23 19:22 rt kmf
--- NOTE | 2024-05-19 19:23 | ER ---
Nurse's Notes [facility] Name: Star Sullivan Age: 63 yrs Sex: Male : 1960 Arrival Date: 05/19/2024 Time: 18:46 Bed 3 Private MD: Diagnosis: Anaphylactic shock, unspecified, initial encounter Presentation: 05/19 18:48 Chief complaint: EMS states: patient was stung multiple times on his body by bee's. ap3 patient was hypotensive and tachycardic on EMS arrival. patient complains of pain to face, neck, chest, back and arms. Coronavirus screen: At this time, the client does not indicate any symptoms associated with coronavirus-19. Ebola Screen: No symptoms or risks identified at this time. Onset: The symptoms/episode began/occurred suddenly. 18:48 Method Of Arrival: EMS: [facility] ap3 19:05 Anaphylaxis evaluation, the patient reports or I have noted the following symptoms ap3 which indicate a significant risk of anaphylaxis: hypotension lightheadedness shortness of breath tachypnea . The patient has been moved to a treatment room and the charge nurse or attending physician has been notified. Initial Sepsis Screen: Does the patient meet any 2 criteria? No. Patient's initial sepsis screen is negative. Does the patient have a suspected source of infection? No. Patient's initial sepsis screen is negative. Risk Assessment: Do you want to hurt yourself or someone else? Patient reports no desire to harm self or others. Onset of symptoms was May 19, 2024. 19:05 Acuity: AL 2 ap3 Triage Assessment: 18:48 General: Appears distressed, uncomfortable, Behavior is restless. Pain: Complains of ap3 pain in face, scalp, back, chest, right arm, left arm, right leg, left leg and neck Pain currently is 10 out of 10 on a pain scale. Neuro: Level of Consciousness is awake, alert, obeys commands, Oriented to person, place, time, situation, Appropriate for age. Cardiovascular: Patient's skin is warm and dry. Respiratory: Airway is patent Respiratory effort is even, unlabored, Respiratory pattern is regular, symmetrical. Derm: bee stingers present. Historical: - Allergies: 19:06 No Known Allergies; ap3 - PMHx: 19:06 Hypertension; Hypertension; ap3 - Immunization history:: Adult Immunizations up to date. - Infectious Disease History:: Denies. - Social history:: Smoking status: Patient denies any tobacco usage or history of. - Family history:: not pertinent. Screenin:57 [facility] ED Fall Risk Assessment (Adult) History of falling in the last 3 months, kc6 including since admission No falls in past 3 months (0 pts) Confusion or Disorientation No (0 pts) Intoxicated or Sedated No (0 pts) Impaired Gait No (0 pts) Mobility Assist Device Used No (0 pt) Altered Elimination No (0 pt) Score/Fall Risk Level 0 - 2 = Low Risk. Abuse screen: Denies threats or abuse. Denies injuries from another. Nutritional screening: No deficits noted. Tuberculosis screening: No symptoms or risk factors identified. Assessment: 19:16 General: Appears in no apparent distress. comfortable, Behavior is cooperative, lg3 anxious, restless. Pain: Complains of pain in neck and scalp and face. Neuro: Viramontes Agitation-Sedation Scale (RASS): +1 Restless Level of Consciousness is awake, alert, obeys commands, Oriented to person, place, time, situation. Cardiovascular: No deficits noted. Denies chest pain, shortness of breath, Capillary refill < 3 seconds Clubbing of nail beds is absent JVD is absent. Respiratory: No deficits noted. Airway is patent Respiratory effort is even, unlabored, Respiratory pattern is regular, symmetrical, Breath sounds are clear bilaterally. GI: No deficits noted. No signs and/or symptoms were reported involving the gastrointestinal system. Abdomen is round non-distended, obese. : No deficits noted. No signs and/or symptoms were reported regarding the genitourinary system. EENT: No deficits noted. No signs and/or symptoms were reported regarding the EENT system. Derm: Skin is intact, is healthy with good turgor, Skin is dry, Skin is normal, Skin temperature is warm Parent/caregiver reports the patient having generalized bee sing sites noted. Musculoskeletal: No deficits noted. No signs and/or symptoms reported regarding the musculoskeletal system. Circulation, motion, and sensation intact. Range of motion: intact in all extremities. 20:00 Reassessment: Patient appears in no apparent distress at this time. No changes from jw7 previously documented assessment. Patient and/or family updated on plan of care and expected duration. Pain level reassessed. Patient is alert, oriented x 3, equal unlabored respirations, skin warm/dry/pink. 21:21 Reassessment: Patient appears in no apparent distress at this time. No changes from jw7 previously documented assessment. Patient and/or family updated on plan of care and expected duration. Pain level reassessed. Patient is alert, oriented x 3, equal unlabored respirations, skin warm/dry/pink. Vital Signs: 18:48 BP 79 / 41; Pulse 88; Resp 24; Pulse Ox 100% on R/A; Pain 10/10; ap3 19:07 BP 139 / 78; Pulse 84; Resp 17; Pulse Ox 100% on 2 lpm NC; ap3 19:16 BP 150 / 58; Pulse 89; Resp 16 S; Pulse Ox 100% on 2 lpm NC; lg3 20:59 BP 133 / 55; Pulse 67; Resp 19 S; Pulse Ox 100% on 2 lpm NC; lg3 18:48 Pain Scale: Adult ap3 ED Course: 18:48 Patient arrived in ED. sb4 18:48 Merlin Waite MD is Attending Physician. sb4 18:56 Inserted saline lock: 18 gauge in right hand, using aseptic technique. Inserted saline kc6 lock: 18 gauge in left antecubital area, using aseptic technique. Blood collected. 18:57 Patient has correct armband on for positive identification. Bed in low position. Call kc6 light in reach. Side rails up X2. Adult w/ patient. gambling monitor on. Pulse ox on. NIBP on. Pillow given. 18:58 Bridgette Nelson, AVA is Primary Nurse. ap3 19:00 Report given to Jewell Sotelo RN \T\ Shereen Ramirez RN. kc6 19:00 Provided Education on: Use of Call LIght. jw7 19:06 Triage completed. ap3 19:07 Arm band placed on right wrist. ap3 19:16 Thermoregulation: warm blanket given to patient. lg3 19:16 Family accompanied patient. lg3 19:22 Juan Dahl MD is Hospitalizing Provider. rt 19:34 EKG done, by ED staff, reviewed by Merlin Waite MD. lg3 21:15 No provider procedures requiring assistance completed. Patient admitted, IV remains in lg3 place. Administered Medications: 18:48 Drug: EPINEPHrine IM 1:1,000 0.3 mg IM once Route: IM; Site: right deltoid; ap3 19:22 Follow up: Response: No adverse reaction lg3 19:08 Drug: diphenhydrAMINE IVP 50 mg IVP once Route: IVP; Site: right hand; ap3 19:22 Follow up: Response: No adverse reaction lg3 19:08 Drug: MethylPrednisoLONE IVP 125 mg IVP once Route: IVP; Site: right hand; ap3 19:22 Follow up: Response: No adverse reaction lg3 19:08 Drug: NS 0.9% IV 2000 ml IV at 1 bolus Per protocol; 1000 mL bolus Route: IV; Rate: 1 ap3 bolus; Site: right hand; 21:05 Follow up: IV Status: Completed infusion; IV Intake: 1000ml lg3 Medication: 21:15 VIS not applicable for this client. lg3 Intake: 21:05 IV: 1000ml; Total: 1000ml. lg3 Outcome: 19:22 Decision to Hospitalize by Provider. rt 21:15 Admitted to ICU accompanied by tech, via wheelchair, room 3, with oxygen, Report called lg3 to ICU 21:15 Condition: stable 21:15 Instructed on the need for admit, Demonstrated understanding of instructions, 21:21 Patient left the ED. jw7 Signatures: Bridgette Nelson RN RN [email or web address] Jewell Sotelo RN RN inna3 Shereen Ramirez RN RN jw7 Chelsy Wang RN RN Ellen Amado, PAEva PAEva [email or web address] Merlin Waite MD MD rt
[2024-05-19] MEDS ORDERED: ALBUTEROL 2.5 MG/3 ML NEB SOL NEB PRN (19:29)
[2024-05-19] MEDS ORDERED: ONDANSETRON 4 MG/2 ML VIAL IV PRN (19:29)
[2024-05-19] MEDS ORDERED: ACETAMINOPHEN 325 MG TABLET PO PRN (19:29)
[2024-05-19] MEDS ORDERED: IPRATROPIUM BROM 0.5MG/2.5ML NEB PRN (19:29)
[2024-05-19] MEDS ORDERED: DIPHENHYDRAMINE 50 MG/ML VIAL IV PRN (19:33)
--- NOTE | 2024-05-19 19:33 | P.HP ---
Certification for Inpatient Patient admitted to: Observation With expected LOS: <2 Midnights Practitioner: I am a practitioner with admitting privileges, knowledge of patient current condition, hospital course, and medical plan of care. Services: Services provided to patient in accordance with Admission requirements found in Title 42 Section 412.3 of the Code of Federal Regulations Patient History Date of Service: 05/20/24 Reason for admission: Bee Stings , Anaphylaxis History of Present Illness: 63 yrs old Male past medical history of hypertension and diabetes who was brought to ER after suffering bee stings. He was doing yard work when all of a sudden he was seen by multiple bee stings. Started having shortness of breath ,palpitation and pain. Bystander called 911 and was brought to ER. In the ER he was hypoxic to 70s and blood pressure was low with 70s. Patient denies any chest pain. No fever but has chills. Denies any cough no wheezing. Denies any nausea vomiting or diarrhea. Patient was found to be in anaphylactic shock and was resuscitated and was admitted for further management and close monitoring Allergies No Known Allergies Allergy (Verified 02/14/21 04:09) Home medications list reviewed: Yes Home Medications: Metformin HCl 500 mg PO DAILY 05/19/24 Olmesartan/Hydrochlorothiazide [Olmesartan-Hctz 40-12.5 mg Tab] 1 each PO DAILY 05/19/24 - Past Medical/Surgical History Diabetic: No Past Medical History: Reviewed- Non-Contributory -: Hypertension Past Surgical History: Reviewed- Non-Contributory -: Cataract surgery -: Left knee surgery Psychosocial/ Personal History: Patient is employed, lives with his family - Family History Family History: Reviewed- Non-Contributory - Family History Mother -: Hypertension - Social History Smoking Status: Never smoker Alcohol use: No CD- Drugs: No Caffeine use: Yes Review of Systems 10-point ROS is otherwise unremarkable Physical Examination - Vital Signs Temperature: 97.2 F Blood Pressure: 138/76 Pulse: 78 Respirations: 20 Pulse Ox (%): 94 - Physical Exam General: Alert, In no apparent distress, Oriented x3, Obese HEENT: Atraumatic, Normocephalic Neck: Supple, JVD not distended Respiratory: Clear to auscultation bilaterally, Normal air movement Cardiovascular: Normal pulses, Regular rate/rhythm, Normal S1 S2 Capillary refill: <2 Seconds Gastrointestinal: Soft and benign, W/out hepatosplenomegaly, No ascites Musculoskeletal: No clubbing, No swelling Integumentary: No rashes, No breakdown Neurological: Normal speech, Normal strength at 5/5 x4 extr, Cranial nerves 3-12 intact Lymphatics: No axilla or inguinal lymphadenopathy - Studies Laboratory Data (last 24 hrs) 05/19/24 19:15 WBC 13.90 H Hgb 12.8 L Hct 37.7 L Plt Count 309 Assessment and Plan - Problems (Diagnosis) (1) Bee sting-induced anaphylaxis Current Visit: Yes Status: Acute Plan: Bee Sting Induced Anaphylaxis Anaphylactic Shock Resuscitated Continue IV hydration Steroids and H2 blockers Benadryl as needed EpiPen if needed Watch closely under telemetry Hypertension Antihypertensives titrated Continue home medications and titrate as needed Hyperlipidemia Continue statin Diabetes Insulin sliding scale Accu-Chek before every meal and at bedtime GI/DVT prophylaxis Advanced directive full code Discharge Plan: Home Plan to discharge in: 48 Hours - Advance Directives Does patient have a Living Will: No Does patient have a Durable POA for Healthcare: No - Code Status/Comfort Care Code Status: Full Code Time Spent Managing Pts Care (In Minutes): 48
[2024-05-19] MEDS ORDERED: EPINEPHRINE 1 MG/ML VIAL SQ PRN (19:34)
[2024-05-19 19:44] LABS: Anion Gap 12.4 mEq/L (5.0-15.0); Potassium 3.4 mEq/L (3.5-5.1); Troponin High Sensitivity 15.3 pg/mL (<58.9)
[2024-05-19] MEDS: FAMOTIDINE 20 MG TAB PO ONE (21:42)
[2024-05-19] MEDS: NA CHLORIDE 0.9% 1,000 ML IV SCH (21:42)
[2024-05-19 22:20] VITALS: BMI 34.4
[2024-05-19] MEDS: METHYLPREDNISOLONE 125 MG INJ IV SCH (23:22)
[2024-05-20 05:07] VITALS: O2SAT 100
[2024-05-20 05:08] LABS: Specific Gravity 1.024 (1.005-1.030); Sqamous Epithelial None Seen /HPF (None Seen); Urine Bacteria None Seen /HPF (<20); Urine Bilirubin NEGATIVE (Negative); Urine Blood Negative (Negative); Urine Clarity Clear (Clear); Urine Color Yellow (Yellow); Urine Culture Reflex Order NOT NEEDED; Urine Glucose 1+ (Negative); Urine Ketones NEGATIVE (Negative); Urine Microscopic Reflex YN ORDER UMIC; Urine Mucus Slight /HPF (None Seen); Urine Nitrite NEGATIVE (Negative); Urine Protein 1+ (Negative); Urine RBC None Seen /HPF (None Seen); Urine Urobilinogen Normal (Normal); Urine WBC <5 /HPF (<5)
[2024-05-20 05:15] LABS: Absolute Lymphocytes (CBC) 0.7 K/uL (0.7-4.9); Absolute Monocytes 0.1 K/uL (0.1-1.3); Absolute Neutrophil 8.7 K/uL (1.8-8.0); Basophils % 0.1 % (0-1.3); Hematocrit 38.6 % (39.6-49.0); Hemoglobin 13.2 g/dL (13.6-17.9); Lymphocytes % 7.2 % (15.3-44.8); MCH 31.7 pg (27.0-35.0); MCHC 34.2 g/dL (32.0-36.0); MCV 92.9 fL (80-100); MPV 10.1 fL (7.6-11.3); Monocytes % 0.7 % (3.3-12.3); Platelets 251 thou/uL (152-406); RBC Red Blood Cell Count 4.15 M/uL (4.33-5.43); Red Cell Distribution Width 14.7 % (12.1-15.2)
[2024-05-20 05:23] LABS: Albumin 3.2 g/dL (3.4-5.0); Albumin/Globulin Ratio 0.9 (1.1-1.8); Anion Gap 9.2 mEq/L (5.0-15.0); Bilirubin Total 0.3 mg/dL (0.2-1.0); Globulin 3.5 g/dL (2.3-3.5); Magnesium 2.2 mg/dL (1.6-2.4); Potassium 4.2 mEq/L (3.5-5.1); Protein, Total 6.7 g/dL (6.4-8.2)
[2024-05-20 05:52] LABS: Band Neutrophils 24 % (0-1); Blood Morphology Comment NOT SEEN (NOT SEEN); Differential Total Cells Count 100; Lymphocytes 5 % (15-42); Monocytes 0 % (0-10); Platelet Estimate ADEQ; Reactive Lymphocytes 1 %; Segmented Neutrophils 70 % (40-80)
--- NOTE | 2024-05-20 07:37 | P.DS ---
Admission Date: 05/19/24 Discharge Date: 05/20/24 Disposition: ROUTINE DISCHARGE Discharge Condition: GOOD Reason for Admission: Bee Stings , Anaphylaxis Brief History of Present Illness: 63yo m, PMH: hypertension and diabetes Patient was brought to ER after suffering bee stings. He was doing yard work when all of a sudden he was seen by multiple bee stings. Started having shortness of breath ,palpitation and pain. Bystander called 911 and was brought to ER. In the ER he was hypoxic to 70s and blood pressure was low with 70s. Patient denies any chest pain. No fever but has chills. Denies any cough no wheezing. Denies any nausea vomiting or diarrhea. Patient was found to be in anaphylactic shock and was resuscitated and was admitted for further management and close monitoring Hospital Course: Problems List: Bee Sting-induced Anaphylactic Shock, resolved Hypertension [id number] Physician discharge instructions: Patient presented to the ED after being stung by multiple bees. He was noted to be hypoxic and hypotensive concerning for anaphylactic shock. Patient was resuscitated by EMS and was given epinephrine, steroids at the time with some improvement. Patient denied having been stung by bees in the past and denied any prior similar allergic reactions. He was admitted to the ICU for close monitoring and had continued improvement throughout the night without further issues. Patient was given IV steroids, epinephrine, benadryl in ED and had improvement of his symptoms. Patient was feeling better close to baseline, breathing okay on room air, blood pressure improved, ambulating without issues, and was deemed stable for discharge. New prescription for Epinephrine pen sent on discharge - for use to prevent anap hylaxis if stung again by bees. Discussed return precautions. Medications: Epinephrine Pen as needed Follow up: PCP 3-5 days Please call to schedule / confirm appointments Physical Exam: GEN: Alert, oriented, NAD HEENT: Normal conjunctiva, sclera anicteric CV: Regular rate and rhythm, no edema Pulm: Nonlabored respirations on room air, clear bilaterally ABD: soft, nontender, nondistended Integumentary: scattered minor sting puncture sites Neuro: Normal speech, normal affect Vital Signs/Physical Exam: Temp Pulse Resp BP Pulse Ox 97.2 F 78 20 138/76 94 05/20/24 05:06 05/20/24 05:06 05/20/24 05:06 05/20/24 05:06 05/20/24 05:06 Laboratory Data at Discharge: WBC 9.50 thou/uL (4.3-10.9) 05/20/24 04:23 Hgb 13.2 g/dL (13.6-17.9) L 05/20/24 04:23 Hct 38.6 % (39.6-49.0) L 05/20/24 04:23 Plt Count 251 thou/uL (152-406) 05/20/24 04:23 Sodium 139 mEq/L (136-145) 05/20/24 04:23 Potassium 4.2 mEq/L (3.5-5.1) D 05/20/24 04:23 BUN 33 mg/dL (7-18) H 05/20/24 04:23 Creatinine 1.28 mg/dL (0.70-1.30) 05/20/24 04:23 Glucose 195 mg/dL (74-106) H 05/20/24 04:23 Phosphorus 2.0 mg/dL (2.5-4.9) L 05/20/24 04:23 Magnesium 2.2 mg/dL (1.6-2.4) 05/20/24 04:23 Total Bilirubin 0.3 mg/dL (0.2-1.0) 05/20/24 04:23 AST 50 U/L (15-37) H 05/20/24 04:23 ALT 56 U/L (16-61) 05/20/24 04:23 Alkaline Phosphatase 97 U/L (45-117) 05/20/24 04:23 Home Medications: Metformin HCl 500 mg PO DAILY 05/19/24 Olmesartan/Hydrochlorothiazide [Olmesartan-Hctz 40-12.5 mg Tab] 1 each PO DAILY 05/19/24 EPINEPHrine [Epinephrine] 0.3 mg IJ DIRECTED PRN 30 Days #2 unit 05/20/24 New Medications: EPINEPHrine [Epinephrine] 0.3 mg IJ DIRECTED PRN 30 Days #2 unit PRN Reason: Allergies Physician Discharge Instructions: Physician discharge instructions: Patient presented to the ED after being stung by multiple bees. He was noted to be hypoxic and hypotensive concerning for anaphylactic shock. Patient was resuscitated by EMS and was given epinephrine, steroids at the time with some improvement. Patient denied having been stung by bees in the past and denied any prior similar allergic reactions. He was admitted to the ICU for close monitoring and had continued improvement throughout the night without further issues. Patient was given IV steroids, epinephrine, benadryl in ED and had improvement of his symptoms. Patient was feeling better close to baseline, breathing okay on room air, blood pressure improved, ambulating without issues, and was deemed stable for discharge. New prescription for Epinephrine pen sent on discharge - for use to prevent anaphylaxis if stung again by bees. Discussed return precautions. Medications: Epinephrine Pen as needed Follow up: PCP 3-5 days Please call to schedule / confirm appointments Followup: Carly Gomez FNP [Primary Care Provider] - Time spent managing pt's care (in minutes): 45
[2024-05-20 07:47] VITALS: BP 156/65; TEMP 97.5
[2024-05-20] MEDS ORDERED: FAMOTIDINE 20 MG TAB PO SCH (09:00)
[2024-05-20] MEDS ORDERED: ENOXAPARIN 40 MG/0.4 ML SQ SCH (09:00)
[2024-05-20] MEDS ORDERED: POTASS/SODIUM PHOSPHATE 1 PKT POWD.PACK PO SCH (09:00)
[2024-05-20] MEDS ORDERED: SODIUM PHOSPHATE 15 MM in NA CHLORIDE 0.9% 250 ML IV ONE (09:00)
--- NOTE | 2024-05-20 13:03 | EKG ---
Test Date: 2024-05-19 Test Time: 19:31:10 Cloth Burler: [place] MEASUREMENT RESULTS: Intervals: Rate: 91 VT: 178 QRSD: 92 QT: 384 QTc: 472 [place]: P: 60 VT: 178 QRS: 40 T: 42 INTERPRETIVE STATEMENTS: Undetermined rhythm Low voltage QRS Borderline ECG Compared to ECG 05/19/2024 19:30:40 Sinus rhythm no longer present Electronically Signed On 05-20-24 13:01:54 CDT by Ab Dias
--- NOTE | 2024-05-20 13:03 | EKG ---
Test Date: 2024-05-19 Test Time: 19:30:40 Concrete Bucket Loader: [place] MEASUREMENT RESULTS: Intervals: Rate: 94 MI: 174 QRSD: 80 QT: 376 QTc: 470 [place]: P: 68 MI: 174 QRS: 39 T: 68 INTERPRETIVE STATEMENTS: Normal sinus rhythm Low voltage QRS Borderline ECG Compared to ECG 02/13/2021 20:03:44 Low QRS voltage now present Electronically Signed On 05-20-24 13:01:55 CDT by Ab Dias
== END 2024-05-20 08:45 | disposition home or self-care (01) ==
LOC: ER 18:46 → ERHOLD 19:29 → 3RD-ICU 21:06
PROVIDERS: ADMIT Family Medicine; ATTEND Hospitalist
DX: T63.441A Toxic effect of venom of bees, accidental (unintentional), initial encounter (principal); T78.2XXA Anaphylactic shock, unspecified, initial encounter; Y92.017 Garden or yard in single-family (private) house as the place of occurrence of the external cause; I10 Essential (primary) hypertension; E78.5 Hyperlipidemia, unspecified; E11.9 Type 2 diabetes mellitus without complications
CPT/HCPCS: 96361; 93005 ×2; 85025 ×2; 81001; 80048; 36415; 83735; 84100; 82947; 84484; 80053; 96375; 96372; 96374; 99285; J2919 ×2; J7030 ×2; G0378; J7050